=== PATIENT | female | born 2000 ===

== ENCOUNTER 2024-05-06 13:03 | Outpatient (AMB) | payer OTHER, SELFPAY ==
--- NOTE | 2024-05-06 13:05 | A.OFFVIS_ITS ---
Vital Signs 05/06/24 13:08 Height 5 ft 3 in Weight 172 lb 6.424 oz BMI 30.5 BP 98/56 L Blood Pressure Location Lt brachial Position Sitting Pulse 102 H Pulse Source Pulse Oximeter Pulse Oximetry (%) 98 Intake Visit Reasons: Elevated testosterone Intake Note: New patient internally referred by PCP for Elevated Testosterone. Grounds Cleaner Required: No Accompanied by: Spouse Allergies No Known Allergies Allergy (Verified 05/06/24 13:09) Medication List - Last Reconciled 05/06/24 by Jair Sin MD No Known Home Meds HPI Comments Details: The patient is a 23-year-old female presenting with concerns about elevated testosterone levels and associated symptoms. The testosterone elevation was identified in labs from February of the previous year. She has noted irregular menstrual cycles with menstruation occurring every 28-45 days, each cycle lasting 3-5 days. Previously tried various hormonal contraceptives in 2021, which aggravated her migraines and were thus discontinued. Experienced weight fluctuations during Nexplanon use, currently stable around 170 pounds. Reports mild neck hirsutism. PCOS is suspected by her power and recovery superintendent. She is 9 weeks , with a history of early miscarriage. Normal blood pressure, no personal/family history of diabetes or significant hypertension noted. Previous normal thyroid assessments. Menarche was age 11. Menses have been irregulaly, regular . every 4- 6 wks OCP use: in 2021- estrogen/progesterone off BCP since 01/2022.- Estrogen-based control pills: attempted for cycle regulation; discontinued due to migraines and increased risk of blood clots. - Progesterone-based control pills: attempted; discontinued due to exacerbation of migraines. - Nexplanon: previously used; discontinued due to weight gain; led to maintained weight loss post-discontinuation. Metformin use: No Weight gain: on Nexplenon now maintaining wt - Hirsutism/hyperandrogenism: some on neck area - Currently 9 wks Ovarian U/S: Yes - no cysts T2DM or acanthosis: No Lipids: [] BP: No Labs: elevated free t=0.7 Nl prolactin , nl DHEAS PFSH Medical History (Updated 05/06/24 @ 13:13 by Jair Sin MD) Hyperandrogenemia Surgical History (Updated 05/06/24 @ 13:09 by SARAH Vernon) No pertinent past surgical history Family History (Updated 05/06/24 @ 13:09 by SARAH Vernon) Mother No known health problems Father No problems noted. Social History (Updated 05/06/24 @ 12:42 by SARAH Vernon) Alcohol intake: never Patient Tobacco Use Status: Never used Tobacco Physical Exam Vital Signs: BMI result Body Mass Index 30.5 Const Other: There are no cushingoid features. Thyroid gland is normal size weighs about 15 g. 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 Testosterone and DHEA-S levels rule out and adrenal or ovarian tumor. We will rule out congenital adrenal hyperplasia, late onset as well as thyroid disorder 1. Elevated testosterone levels and suspected PCOS: Clinical findings suggest PCOS, given irregular cycles and mild hirsutism. Previous tests ruled out other endocrine disorders. Lifestyle management is advised during . I did order a 17 hydroxy progesterone level to rule out congenital adrenal hyperplasia late onset although the 17 OHP level may be elevated during 2. , first trimester: At 9 weeks with a PCOS diagnosis, the patient is at risk for gestational diabetes and miscarriage. Nutritional consultation and obstetric follow-up are planned. The patient had an opportunity to ask questions regarding treatment plan. The patient expressed understanding and agreement with the above treatment plan. During the visit, I discussed the likelihood of Polycystic Ovarian Syndrome (PCOS) considering the patient's elevated testosterone levels, irregular menstruation, and mild hirsutism. I detailed the associated risks of miscarriage and gestational diabetes during her current . We would defer specific PCOS treatments until after childbirth due to the potential contraindications during . The patient was informed of the importance of maintaining a healthy diet and exercise routine to mitigate risks, and a nutritional referral was initiated. We discussed prioritizing follow-up with her obstetrics provider to monitor for gestational diabetes. Standard labs completed previously were noted. I reviewed the potential future use of medications such as metformin or spironolactone , depending on ongoing symptoms and test results. - Maintain a balanced diet and engage in regular physical activity as allowed. - Follow up with obstetrics for routine care and monitoring for gestational diabetes. - Keep the recommended school traffic guard appointment for dietary guidance during . - . Patient was informed and verbally consented to the use of an ambient scribe for clinic note documentation during this visit. Orders: Orders 17 Hydroxyprogesterone Today E28.1 - Androgen excess Referrals Nutrition/Dietitian Referral E28.1 - Androgen excess Coding Level of Care Code New Pt Level 4 (71826) Diagnoses Hyperandrogenemia E28.1
[2024-05-06 13:08] VITALS: BP 98/56; PULSE 102; O2SAT 98; BMI 30.5
--- OUTSIDE RECORDS SUMMARY | 2024-05-06 15:18 | XMS_ITS | Clinical Summary ---
Author Organization [facility] Address [address] [place] [address] Care Team Providers Care Floor Representative Name Role Phone Geeta Macias PA-C Primary Care Provider [phone] Source Comments PLEASE NOTE, if this patient is a minor, it may be UNLAWFUL to discuss sensitive information that is contained in these records (such as FAMILY PLANNING, MENTAL HEALTH or SUBSTANCE ABUSE) with the minor patient's parent or other person without the patient's specific authorization.[facility] Allergies No known active allergies Encounters Date Type Department Care Team Description 03/07/2024 9:20 AM EST Office Visit [address] [phone] Geeta Maicas PA-C Routine screening for STI (sexually transmitted infection) (Primary Dx); BMI 30.0-30.9,adult from Last 3 Months Family History Medical History Relation Name Comments Brain Cancer Brother 22 yo Alcohol/Drug Abuse Maternal Grandfather Alcohol/Drug Abuse Maternal Uncle Relation Name Status Comments Brother 22 yo Alive Maternal Grandfather Maternal Uncle Social History Tobacco Use Types Packs/Day Years Used Date Smoking Tobacco: Never Smokeless Tobacco: Never Tobacco Cessation:Counseling Given: No Alcohol Use Standard Drinks/Week Comments Yes 0 (1 standard drink = 0.6 oz pur e alcohol) rarely Social Connections Answer Date Recorded Connectedness 1 03/07/2024 Financial Resource Strain Answer Date R ecorded Financial Resource Strain 1 2024 Stress Answer Date Recorded Stress 1 03/07/2024 Physical Activity Answer Date Recorded Physical Activity 0 12/21/2023 Food Insecurity Answer Date Recorded Food 1 03/07/2024 Transportation Needs Answer Date Record ed Transportation 1 03/07/2024 Housing Stability Answer Date Recorded Housing 1 03/07/2024 Safety and Environment Answer Date Zeus rded Safety 1 03/07/2024 Utilities Answer Date Recorded Utilities 1 03/07/2024 Employment Answer Date Recorded Stress 0 12/21/2023 Comments Unknown Sex and Gender Information Value Date Recorded Sex Assigned at Female 03/07/2024 7:16 AM PST Legal Sex Female 1:18 PM PDT Gender Identity Female 03/07/2024 7:16 AM PST Sexual Orientation Straight 03/07/2024 7: 16 AM PST Last Filed Vital Signs Vital Sign Reading Time Taken Comments Blood Pressure 110/80 03/07/2024 10:12 AM EST Pulse 92 03/07/2024 10:12 AM EST Temperature 36.7 ??C (98 ??F) 03/07/2024 10:12 AM EST Respiratory Rate 16 03/07/2024 10:12 AM EST Oxygen Saturation - - Inhaled Oxygen Concentration - - Weight 77.4 kg (170 lb 9.6 oz) 03/07/2024 10:12 AM EST Height 160 cm (5' 3 ) 03/07/2024 10:12 AM EST Body Mass Index 30.22 03/07/2024 10:12 AM EST Plan of Treatment Upcoming Encounters Date Type Department Care Team (Late st Contact Info) Description 06/04/2024 3:00 PM EDT Office Visit [facility] [address] [place] [phone] Geeta Macias PA-C [address] [place] [address] Health Maintenance Due Date Last Done Comments Anxiety Screening 1999 HPV Screening 1999 Hepatitis C Screening 1999 Pap + HPV 1999 Imm-Varicella (1 of 2 - 13+ 2-dose series) 05/24/2012 Imm-HPV (1 - 3-dose series) 05/24/2014 Imm-DTaP/Tdap/Td (1 - Tdap) 05/24/2018 Imm-Hepatitis B (1 of 3 - 19+ 3-dose series) 9 Cervical Cancer Screening 05/24/2020 Pap Smear 05/24/2020 [id number] ( season) 2023 Imm-Influenza (#1) 2023 Hypertension Screening (#1) 03/07/2025 Relationship Safety Screening/Counseling 03/07/2025 03/07/2024 Tobacco Screening 03/07/2025 03/07/2024 Chlamydia Screening 03/13/2025 03/13/2024 Gonorrhea Screening 03/13/2025 03/13/2024 Lipid Screening 03/07/2027 03/07/2024 Alcohol and Drug Screen Completed 03/07/2024 Depression Annual Screen Completed 03/07/2024 HIV Screening Completed 03/07/2024 Cervical Ablation/Cold-Knife Conization Discontinued Cervical Cryotherapy Discontinued Colposcopy Discontinued Endometrial Biopsy Discontinued Excision/Leep Discontinued HPV Genotyping Discontinued Vaginal Pap Discontinued Vulvoscopy Discontinued Procedures Procedure Name Priority Date/Time Associated Diagnosis Comments C TRACHOMATIS/N GONORRHOEAE RNA,TMA Routine 03/13/2024 4:53 PM EST Routine screening for STI (sexually transmitted infection) LIPID PANEL Routine 03/07/2024 10:58 AM EST BMI 30.0-30.9,adult COMPREHENSIVE METABOLIC PANEL Routine 03/07/2024 10:58 AM EST BMI 30.0-30.9,adult BLOOD COUNT COMPLETE AUTO&AUTO DIFRNTL WBC Routine 03/07/2024 10:58 AM EST BMI 30.0-30.9,adult RPR (DIAGNOSIS) WITH REFLEX TO TITER AND CONFIRMATORY TESTING Routine 03/07/2024 10:58 AM EST Routine screening for STI (sexually transmitted infection) HIV 1/2 AG & AB W/RFLX (4TH GEN) Routine 03/07/2024 10:58 AM EST Routine screening for STI (sexually transmitted infection) from Last 3 Months Results * C TRACHOMATIS/N GONORRHOEAE RNA,TMA (03/13/2024 4:53 PM EST) CHLAMYDIA TRACHOMATIS RNA, TMA NOT DETECTED NOT DETECTED [facility] NEISSERIA GONORRHOEAE RNA, TMA NOT DETECTED NOT DETECTED [facility] COMMENT [facility] Urine Urine specimen / Unknown 03/09/2024 1:01 AM EST Narrative [facility] - 03/13/2024 4:53 PM EST The analytical performance characteristics of this assay, when used to test SurePath(TM) specimens have been determined by [employer]. The modifications have not been cleared or approved by the FDA. This assay has been validated pursuant to the CLIA regulations and is used for clinical purposes. For additional information, please refer to https://education.[employer]ful/faq/ANY323 (This link is being provided for information/ educational purposes only.) us Geeta Macias PA-C LAB - NO BLOOD DRAW Edited R esult - Final Performing Organization Address [facility] Co de Phone Number [employer] [address] [address], [employer] [address] [phone] * RPR (DIAGNOSIS) WITH REFLEX TO TITER AND CONFIRMATORY TESTING (03/07/2024 10:58 AM EST) Pathologist [facility] RPR (DX) W/REFL TITER AND CONFIRMATORY TESTING NON-REACT RENETTA NON-REACT RENETTA [facility] Comment: No laboratory evidence of syphilis. If recent exposure is suspected, submit a new sample in 2-4 weeks. Serum Blood / Unknown 03/07/2024 1 0:58 AM EST 03/07/2024 11:00 AM EST Narrative [employer] - 03/09/2024 4:06 PM EST FASTING:YES PATIENT UNABLE TO VOID; ADVISED TO RETURN FOR COLLECTION. [facility] Geeta Macias PA-C LAB - BLOOD DRAW Final Resul t Performing Organization Address [facility] Co de Phone Number [employer] [address] [address], [employer] [address] [phone] * HIV 1/2 AG & AB W/RFLX (4TH GEN) (03/07/2024 10:58 AM EST) HIV AG/AB, 4TH GEN NON-REAC TIVE NON-REAC TIVE [facility] Comment: HIV-1 antigen and HIV-1/HIV-2 antibodies were not detected. There is no laboratory evidence of HIV infection. PLEASE NOTE: This information has been disclosed to you from records whose confidentiality may be protected by state law. ??If your state requires such protection, then the state law prohibits you from making any further disclosure of the information without the specific written consent of the person to whom it pertains, or as otherwise permitted by law. A general authorization for the release of medical or other information is NOT sufficient for this purpose. ?? For additional information please refer to http://education.Measureful/faq/NHW204 (This link is being provided for informational/ educational purposes only.) The performance of this assay has not been clinically validated in patients less than 2 years old. Blood Blood / Unknown 03/07/2024 1 0:58 AM EST 03/07/2024 11:00 AM EST Narrative [employer] [employer] - 03/09/2024 4:06 PM EST FASTING:YES PATIENT UNABLE TO VOID; ADVISED TO RETURN FOR COLLECTION. us Geeta Macias PA-C LAB - BLOOD DRAW Final Resul t [employer] [address] [place] [id number], [employer] [address] [phone] * (ABNORMAL) BLOOD COUNT COMPLETE AUTO&AUTO DIFRNTL WBC (03/07/2024 10:58 AM EST) Pathologist [facility] WHITE BLOOD CELL COUNT 6.4 3.8 - 10.8 Thousand/ uL [facility] RED BLOOD CELL COUNT 5.29(H) 3.80 - 5.10 Million/u L [facility] HEMOGLOBIN 14.6 11.7 - 15.5 g/dL [facility] HEMATOCRIT 44.9 35.0 - 45.0 % [facility] MCV 84.9 80.0 - 100.0 fL [facility] MCH 27.6 27.0 - 33.0 pg [facility] MCHC 32.5 32.0 - 36.0 g/dL [facility] Comment: For adults, a slight decrease in the calculated MCHC value (in the range of 30 to 32 g/dL) is most likely not clinically significant; however, it should be interpreted with caution in correlation with other red cell parameters and the patient's clinical condition. RDW 12.8 11.0 - 15.0 % [facility] PLATELET COUNT 238 140 - 400 Thousand/ uL [facility] MPV 11.6 7.5 - 12.5 fL [facility] ABSOLUTE NEUTROPHILS 3,341 1,500 - 7,800 cells/uL [facility] ABSOLUTE LYMPHOCYTES 2,458 850 - 3,900 cells/uL [facility] ABSOLUTE MONOCYTES 448 200 - 950 cells/uL [facility] ABSOLUTE EOSINOPHILS 122 15 - 500 cells/uL [facility] ABSOLUTE BASOPHILS 32 0 - 200 cells/uL [facility] NEUTROPHILS PCT 52.2 % [facility] LYMPHOCYTES 38.4 % [facility] MONOCYTES 7.0 % [facility] EOSINOPHILS 1.9 % [facility] BASOPHILS 0.5 % [employer] DIAG [facility] Blood Blood / Unknown 03/07/2024 1 0:58 AM EST 03/07/2024 11:00 AM EST Narrative [facility] [employer] - 03/09/2024 4:06 PM EST FASTING:YES PATIENT UNABLE TO VOID; ADVISED TO RETURN FOR COLLECTION. Geeta Macias PA-C LAB - BLOOD DRAW Edited Resu lt - Final [employer] [address] [place] [id number], [facility] [address] [place] [phone] * (ABNORMAL) LIPID PANEL (03/07/2024 10:58 AM EST) CHOLESTEROL, TOTAL 192 <200 mg/dL [facility] HDL CHOLESTEROL 37(L) > OR = 50 mg/dL [facility] TRIGLYCERIDES 236(H) <150 mg/dL [facility] Comment: If a non-fasting specimen was collected, consider repeat triglyceride testing on a fasting specimen if clinically indicated. Emily et al. J. of Clin. Lipidol. 2015;9:129-169. LDL-CHOLESTEROL 119(H) 99 mg/dL (calc) [facility] Comment: Reference range: <100 Desirable range <100 mg/dL for primary prevention; ?? <70 mg/dL for patients with CHD or diabetic patients with > or = 2 CHD risk factors. LDL-C is now calculated using the Chuck calculation, which is a validated novel method providing better accuracy than the Friedewald equation in the estimation of LDL-C. Nino SS et al. JAMI. 2013;310(19): 0101-4540 (http://education.[employer]/faq/JFZ451) CHOL/HDLC RATIO 5.2(H) <5.0 (calc) [facility] NON-HDL CHOLESTEROL 155(H) <130 mg/dL (calc) [facility] Comment: For patients with diabetes plus 1 major ASCVD risk factor, treating to a non-HDL-C goal of <100 mg/dL (LDL-C of <70 mg/dL) is considered a therapeutic option. Blood Blood / Unknown 03/07/2024 1 0:58 AM EST 03/07/2024 11:00 AM EST Narrative [facility] [employer] - 03/09/2024 4:06 PM EST FASTING:YES PATIENT UNABLE TO VOID; ADVISED TO RETURN FOR COLLECTION. us Geeta Macias PA-C LAB - BLOOD DRAW Final Resul t [employer] [address] [place] [id number], [facility] [address] [place] [phone] * COMPREHENSIVE METABOLIC PANEL (03/07/2024 10:58 AM EST) [facility] GLUCOSE 91 65 - 99 mg/dL [facility] Comment: ?Fasting reference interval UREA NITROGEN (BUN) 10 7 - 25 mg/dL [facility] CREATININE (blood) 0.64 0.50 - 0.96 mg/dL [employer] [place] [facility] EGFR 126 > OR = 60 mL/min/1. 73m2 [employer] [place] [facility] BUN/CREATININE RATIO SEE NOTE: [facility] Comment: ?? Not Reported: BUN and Creatinine are within ?? reference range. ? SODIUM 139 135 - 146 mmol/L [employer] POTASSIUM 4.2 3.5 - 5.3 mmol/L [employer] [place] [facility] CHLORIDE 103 98 - 110 mmol/L [employer] [place] [facility] CARBON DIOXIDE 31 20 - 32 mmol/L [employer] [place] [facility] CALCIUM 9.1 8.6 - 10.2 mg/dL [facility] [place] [facility] PROTEIN, TOTAL 6.8 6.1 - 8.1 g/dL [facility] [place] [facility] ALBUMIN 4.4 3.6 - 5.1 g/dL [facility] [place] [facility] GLOBULIN 2.4 1.9 - 3.7 g/dL (calc) [facility] ALBUMIN/GLOBULI N RATIO 1.8 1.0 - 2.5 (calc) [facility] [place] [facility] BILIRUBIN, TOTAL 0.4 0.2 - 1.2 mg/dL [facility] ALKALINE PHOSPHATASE 61 31 - 125 U/L [employer] AST 14 10 - 30 U/L [facility] ALT 15 6 - 29 U/L [facility] Blood Blood / Unknown 03/07/2024 1 0:58 AM EST 03/07/2024 11:00 AM EST Narrative [employer] [facility] - 03/09/2024 4:06 PM EST FASTING:YES PATIENT UNABLE TO VOID; ADVISED TO RETURN FOR COLLECTION. Geeta Macias PA-C LAB - BLOOD DRAW Edited Resu lt - Final [employer] [address] [address], [employer] [facility] [address] [place] [phone] from Last 3 Months Insurance [employer] Member Subscriber Plan / Payer (Ef fective 2023-Present) Name:Alec Hunt Relation to Subscriber:Self Name:Alec Hunt Payer ID:[id number] Group ID:Not on file Type:Indemnity Address: [facility] [address] [place] [address] Care Teams Floor Representative Relationship Specialty Start Date End Date Geeta Macias PA-C [address] [place] [address] PCP - General FAMILY MEDICINE PA 12/21/23
--- OUTSIDE RECORDS SUMMARY | 2024-05-06 15:18 | XMS_ITS | Clinical Summary ---
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 09/19/2022 Active vitamin iron fum-folic acid 27-0.8 mg per tablet Take 1 tablet by mouth 1 (one) time each day. 30 each 04/29/2024 04/30/19 26 Active Encounters Date Type Department Care Team Description 04/29/2024 3:00 PM EDT Clinical Support [facility] [address] [place], [place] [phone] Missed period (Primary Dx) 04/03/2024 Telephone Ob[facility]etrics [facility]cology - [facility] [address] [place], [place] [phone] Giovanna Goodson CNM 03/28/2024 11:00 AM EST Office Visit Obst[facility]s [facility]cology - [facility] [address] [place], [place] [phone] Giovanna Goodson CNM Irregular menstrual cycle (Primary Dx) from Last 3 Months Surgical History Surgery Date Site/Laterality Comments WISDOM TOOTH EXTRACTION PROCEDURE: HISTORICAL WISDOM TEETH EXTRACTION Medical History Medical History Date Comments Migraines DX:Migraines Bicornate uterus DX:Bicornate ut erus Family History Medical History Relation Name Comments Bipolar disorder Mother Relation Name Status Comments Father Maternal Grandfather Maternal Grandmother Alive Mother Alive Paternal Grandfather Paternal Grandmother Alive Social History Tobacco Use Types Packs/Day Years Used Date Smoking Tobacco: Never Smokeless Tobacco: Never Tobacco Cessation:Counseling Given: Not Answered Alcohol Use Standard Drinks/Week Comments No 0 (1 standard drink = 0.6 oz pur e alcohol) Housing Instability Answer Date Recorde d Are you worried that in the next 2 months you may not have stable housing? Unable to respond 03/27/2024 Food Access & Nutrition Answer Date Rec orded Do you have access to a vari ety of food including fruits and vegetables? Unable to respond 03/27/2024 Health Literacy Answer Date Recorded How often do you need to hav e someone help you when you read instructions, pamphlets, or other written material from your doctor or pharmacy? Unable to respond 03/27/2024 Caregiver: How often do you need to have someone help you when you read instructions, pamphlets, or other written material from your doctor or pharmacy? Not on file 025 Financial Risk Answer Date Recorded How hard is it for you to pa y for the very basics like food, housing, medical care, and air conditioning / heating? Unable to respond 03/27/2024 Transportation Answer Date Recorded Has the lack of transportati on kept you from meetings, work, or from getting things needed for daily living? Unable to respond 03/27/2024 Has the lack of transportati on kept you from medical appointments or from getting medications? Unable to respond 03/27/2024 Social Isolation Answer Date Recorded How often do you feel lonely or isolated from those around you? Unable to respond 03/27/2024 Food Risk Answer Date Recorded Within the past 12 months we worried whether our food would run out before we got money to buy more. Unable to respond 025 Within the past 12 months th e food we bought just didn't last and we didn't have money to get more. Unable to respond 03/09 Dependent Care Answer Date Recorded Do you need help finding or paying for care for your loved ones. For example, rn child or elderly care for an older adult? Unable to respond 03/27/2024 Education Answer Date Recorded Do you think completing more education or training, like finishing a GED, going to college, or learning a trade, would be helpful for you? Unable to respond 03/27/2024 Employment and Income Answer Date Recor ded During the last four weeks, have you been actively looking for work? Unable to respond 03/27/2024 Living Situation Answer Date Recorded What is your living situation? 0 03/27/2024 Estimated Date of Delivery Comme nts Yes 12/08/2024 Sex and Gender Information Value Date Recorded Sex Assigned at Not on file Legal Sex Female 1:21 PM EDT Gender Identity Not on file Sexual Orientation Not on file Obstetrics History Para Term AB IAB SAB Ectopic Multiple Livin g Live Births 2 0 0 0 1 0 1 0 0 0 0 Date Outcome GA Total Labor Labor/2nd/3rd Weight Sex Type Anes PTL Yojana A1 A5 Name Clin SAB Current Last Filed Vital Signs Vital Sign Reading Time Taken Comments Blood Pressure 126/72 04/29/2024 3:13 PM EDT Pulse 90 04/29/2024 3:13 PM EDT Temperature - - Respiratory Rate 19 04/29/2024 3:13 PM EDT Oxygen Saturation - - Inhaled Oxygen Concentration - - Weight 76.2 kg (168 lb) 04/29/2024 3:13 PM EDT Height 160 cm (5' 3 ) 04/29/2024 3:13 PM EDT Body Mass Index 29.76 04/29/2024 3:13 PM EDT Plan of Treatment Upcoming Encounters Date Type Department Care Team (Late st Contact Info) Description 05/13/2024 1:30 PM EDT Clinical [facility] [address] [place] [address] 06/03/2024 3:00 PM EDT Initial Obstetrics and Gynecology - [address] [phone] Giselle Carrero CNM [address] [place] [phone] Health Maintenance Due Date Last Done Comments DTaP,Tdap,and Td Vaccines (6 - Td or Tdap) 01/03/2021 01/03/2011, 05/26/2003, 09/13/2000, Additional history exists COVID-19 Vaccine ( season) 2023 Gonorrhea/Chlamydia Screening 05/27/2024 05/28/2023 Influenza Vaccine (Season Ended) 2024 11/20/2018, 10/23/2016, 10/26/2014, Additional history exists Social Influencers of Health Screening 03/27/2025 03/27/2024 Depression Screening 04/28/2025 04/28/2024 Cervical Cancer Screening: Pap Smear 09/19/2025 09/19/2022, 09/19/2022 Cholesterol Screening (Lipid Panel) 03/07/2029 03/07/2024, 03/07/2024 Hepatitis B Vaccines Completed 09/13/2000, 1999, 1999 IPV Vaccines Completed 05/26/2003, 10/07, 09/13/2000, Additional history exists HPV Vaccines Completed 10/26/2014, 11/06, 10/14/2012 Meningococcal ACWY Vaccine Completed 09/27/2017, HIV Screening Completed 04/04/2019 Hepatitis C Screening Completed 04/04/2019 HIB Vaccines Aged Out No longer eligi ble based on patient's age to complete this topic Hepatitis A Vaccines Aged Out No long er eligible based on patient's age to complete this topic Meningococcal B Vacine Aged Out No lo nger eligible based on patient's age to complete this topic Pneumococcal Vaccine: Pediatrics (0 to 5 Years) and At-Risk Patients (6 to 64 Years) Aged Out No longer eligible based on patient's age to complete this topic RSV Immunization Patients Under 20 months Aged Out No longer eligible based on patient's age to complete this topic Procedures Procedure Name Priority Date/Time Associated Diagnosis Comments POC , URINE DIAGNOSTIC Routine 04/29/2024 3:46 PM EDT Missed period PROLACTIN Routine 03/28/2024 12:28 PM EST Irregular menstrual cycle TESTOSTERONE FREE, BIOAVAILABLE AND TOTAL Routine 03/28/2024 12:28 PM EST Irregular menstrual cycle LUTEINIZING HORMONE Routine 03/28/2024 12:28 PM EST Irregular menstrual cycle ESTRADIOL Routine 03/28/2024 12:28 PM EST Irregular menstrual cycle DEHYDROEPIANDROSTERONE Routine 12:28 PM EST Irregular menstrual cycle HEMOGLOBIN A1C Routine 03/28/2024 12:28 PM EST Irregular menstrual cycle THYROID STIMULATING HORMONE WITH REFLEX TO FREE T4 AND FREE T3 Routine 03/28/2024 12:28 PM EST Irregular bleeding HM GONORRHEA/CHLAMYDIA SCRREENING Routine 05/28/2023 HM HPV Routine 09/19/2022 HM HEPATITIS C SCREENING Routine 04/04/2019 HM HIV SCREENING Routine 04/04/2019 from Last 3 Months or Most Recently Relevant to Health Maintenance Results * (ABNORMAL) POC , urine manually resulted (04/29/2024 3:46 PM EDT) HCG, Ur POC Positive(A ) Negative POC hCG Int QC Pass? Yes Yes Urine Urine specimen obtained by clean catch procedure / Unknown 04/29/2024 3:46 PM EDT Giselle Carrero CNM POINT OF CARE TEST ENTER/GEMMA T ORDERABLES Final Result * Thyroid stimulating hormone with reflex to free t4 and free t3 (03/28/2024 12:28 PM EST) TSH 2.11 0.40 - 4.00 mcIU/mL LAB CHEMISTRY METHOD 03/28/2024 4:38 PM EST [facility] Blood Venous blood specimen / Unknown Venipuncture / Unknown 03/28/2024 12:28 PM EST 03/28/2024 12:28 PM EST Giovanna ORTIZ LAB BLOOD ORDERABLES Fi nal Result [facility] [address] [place] [address], [place] [phone] * (ABNORMAL) Testosterone free, bioavailable and total (03/28/2024 12:28 PM EST) Testosterone 45 9 - 48 ng/dL LAB CHEMISTRY METHOD 03/28/2024 4:38 PM EST [facility] Testosterone, Free 0.7(H) 0.0 - 0.5 ng/dL LAB CHEMISTRY METHOD 03/28/2024 4:38 PM EST [facility] Testosterone, Bioavailable 16(H) 1 - 9 ng/dL LAB CHEMISTRY METHOD 03/28/2024 4:38 PM EST [facility] Sex Hormone Binding 39.9 See Comment nmol/L LAB CHEMISTRY METHOD 03/28/2024 4:38 PM EST [facility] Comment: FEMALES: ??pre-menopausal ?? 10.8 - >180 ??post-menopausal ??23.2 - 159.1 MALES: ?? 21-49 years ? 14.6 - 94.6 ?? 50-89 years ? 21.6 - 113.1 CHILDREN: ??No established reference range Over the counter supplements containing high doses of biotin may interfere with this assay. ??If interference is suspected, patients should be retested after refraining from biotin supplements for 72 hours. Albumin 4.1 3.2 - 5.0 g/dL LAB CHEMISTRY METHOD 03/28/2024 4:38 PM EST [facility] Blood Venous blood specimen / Unknown Venipuncture / Unknown 03/28/2024 12:28 PM EST 03/28/2024 12:28 PM EST Giovanna ORTIZ LAB BLOOD ORDERABLES Fi nal Result [facility] [address] [place] [address], * Prolactin (03/28/2024 12:28 PM EST) [facility] Prolactin 23.20 See Comment ng/mL LAB CHEMISTRY METHOD 03/28/2024 4:32 PM EST [facility] Comment: Prolactin Reference Ranges (ng/mL) ??Non ?2.2 - ??30.3 ? 8.1 - 347.6 ??Postmenopausal 0.7 - ??31.5 Blood Venous blood specimen / Unknown Venipuncture / Unknown 03/28/2024 12:28 PM EST 03/28/2024 12:28 PM EST Giovanna Goodson [facility] LAB BLOOD ORDERABLES Fi nal Result Performing Organization Address [facility] de Phone Number [facility] [address] [place] [address], * Estradiol (03/28/2024 12:28 PM EST) [facility] Estradiol 491 See below pcg/mL LAB CHEMISTRY METHOD 03/28/2024 4:32 PM EST [facility] Comment: ESTRADIOL REFERENCE RANGES (PG/ML) FEMALES NORMALLY MENSTRUATING: FOLLICULAR PHASE 21.4 - 164.8 MIDCYCLE PEAK ?49.9 - 367.2 LUTEAL PHASE ? 40.2 - 259.0 POSTMENOPAUSAL: ON HRT ?<11 - 462.1 UNTREATED ? <11 - ??58.3 Fulvestrant has been shown to cross-react with the estradiol assay and cause falsely elevated results. For patients being treated with fulvestrant, Estradiol ultrasensitive should be ordered. ??This test is performed by LC/MS and is not expected to show cross reactivity to fulvestrant. Blood Venous blood specimen / Unknown Venipuncture / Unknown 03/28/2024 12:28 PM EST 03/28/2024 12:28 PM EST Giovanna ORTIZ LAB BLOOD ORDERABLES Fi nal Result Performing Organization Address [facility] Co de Phone Number [facility] [address] [place] [address], * Dehydroepiandrosterone (03/28/2024 12:28 PM EST) Pathologist [facility] DHEA (Dehydroepiandroster one), Unconjugated, LC/MS/MS 491 ng/dL 04/03/2024 10:35 AM EST [facility] Comment: Adult Female Reference Ranges ??Pre-Menopausal ?Mid Follicular: 385-1143 ng/dL ?Surge: ?345-2030 ng/dL ?Mid Luteal: ? 414-1295 ng/dL ??Post-Menopausal ?77-851 ng/dL This test was developed and its analytical performance characteristics have been determined by [email or web address]. It has not been cleared or approved by FDA. This assay has been validated pursuant to the CLIA regulations and is used for clinical purposes. Test Performed at: [facility] [address] ??[id number] ? I Nghia TOBAR, PhD, PAUL Blood Venous blood specimen / Unknown Venipuncture / Unknown 03/28/2024 12:28 PM EST 03/28/2024 12:28 PM EST Giovanna ORTIZ LAB BLOOD ORDERABLES Fi nal Result [facility] [address] [place] [address] * Hemoglobin A1c (03/28/2024 12:28 PM EST) [facility] Hemoglobin A1C 5.3 <6.5 % LAB CHEMISTRY METHOD 03/28/2024 9:02 PM EST [facility] Mean Bld Glu Estim. 105 mg/dL LAB CHEMISTRY METHOD 03/28/2024 9:02 PM EST [facility] Blood Venous blood specimen / Unknown Venipuncture / Unknown 03/28/2024 12:28 PM EST 03/28/2024 12:28 PM EST Giovanna Goodson [facility] BLOOD ORDERABLES Fi nal Result Performing Organization Address [facility]/ZIP Co de Phone Number [facility] [address] [place] [address], [place] [phone] * Luteinizing hormone (03/28/2024 12:28 PM EST) Luteinizing Hormone 2.0 See Comment mIU/mL LAB CHEMISTRY METHOD 03/28/2024 4:31 PM EST [facility] Blood Venous blood specimen / Unknown Venipuncture / Unknown 03/28/2024 12:28 PM EST 03/28/2024 12:28 PM EST Narrative [facility] - 03/28/2024 4:31 PM EST LH REFERENCE RANGES (MIU/ML) FEMALES NORMALLY MENSTRUATING: FOLLICULAR PHASE ??1.9 - 12.8 MIDCYCLE PEAK ?22.8 - 76.1 LUTEAL PHASE ?0.6 - 13.5 POSTMENOPAUSAL: ON HRT ?1.1 - ??52.4 UNTREATED ? 8.6 - ??61.8 Giovanna ORTIZ LAB BLOOD ORDERABLES Fi nal Result Performing Organization Address [facility]/ZIP Co de Phone Number [facility] [address] [place] [address], [place] [phone] * Hm Gonorrhea/Chlamydia Screening (05/28/2023) HM Gonorrhea/Chla mydia Screening abstracted Historical Provider HEALTH MAINTENANCE Final Result * Cervical Cancer Screening: HPV (09/19/2022) Cervical Cancer Screening: HPV no interpreta tion,abstr acted Historical Provider HEALTH MAINTENANCE Final Result * HIV Screening (04/04/2019) HIV Screening abstracted Historical Provider HEALTH MAINTENANCE Final Result * Hepatitis C Screening (04/04/2019) Hepatitis C Screening abstracted Historical Provider HEALTH MAINTENANCE Final Result from Last 3 Months or Most Recently Relevant to Health Maintenance Insurance [employer] 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
== END 2024-05-06 13:40 | disposition home or self-care (01) ==
LOC: HO.ENCR 13:04
PROVIDERS: PCP Internal Medicine; Visit Provider Internal Medicine Endocrinology, Diabetes & Metabolism
DX: E28.1 Androgen excess (principal)
CPT/HCPCS: 99204

== ENCOUNTER → 2024-05-06 13:03 | Outpatient (BNVA) | payer OTHER, SELFPAY | PROVIDERS: PCP Internal Medicine; Visit Provider Internal Medicine Endocrinology, Diabetes & Metabolism | DX: E28.1 Androgen excess (principal) | CPT/HCPCS: 99202 ==

== ENCOUNTER 2024-05-22 13:32 | Outpatient (AMB) | payer OTHER, SELFPAY ==
--- NOTE | 2024-05-22 13:37 | A.OFFVIS_ITS ---
VS Expanded 05/22/24 13:39 05/22/24 14:12 Height 5 ft 3 in 5 ft 3 in Weight 165 lb BMI 29.2 Intake Visit Reasons: Hyperandrogenemia Allergies No Known Allergies Allergy (Verified 05/06/24 13:09) Nutrition Presentation Details: Pt presents for MNT for hyperandrogenemia. Pt was referred by metal buffer Pt is 11 wks , due date Dec 2024 On vitamins Denies vomiting/nausea typical meal 9-10: scrambled eggs, pancakes or toast , water or oj fruits [facility] BS Monitoring Most Recent Diabetes Results: No Data to Display [employer] Equation Height: 5 ft 3 in Weight: 165 lb Resting Metabolic Rate: 1463.80 Calculated Activity Level: Sedentary Calories Needed to Maintain Weight: 1756.56 Diagnosis Nutrition problem #1: food nutri know defi As related to (etiology) #1: diagnosis As evidenced by (sign/symptom) #1: knowledge deficit of diet [facility] Medical History (Updated 05/06/24 @ 13:13 by Jair Sin MD) Hyperandrogenemia Surgical History (Updated 05/06/24 @ 13:09 by SARAH Vernon) No pertinent past surgical history Family History Mother No known health problems Father No problems noted. 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 Category: Medical Plan pre gravid wt 167 lbs current wt 165 lbs Expected due date Dec 21, 2024, Weeks gestation : 11 wks Recommended wt gain during : 15-25 lbs Wt: 83 Kg (pregravid wt ) Est kcal needs as per MSJ: 1800 (40% carb, 30% protein/fat) Est fluid needs as per 25-30 ml/d: 2500 Est prot per day as per 1-1.2 g/kg bw: 80g/d Recommend fiber intake : 8-10 g per day and gradually increase to 25-28 g per day for women and 35-38 g for men or as tolerated Recommend sodium intake per day : less than 2000 mg Educated patient on: ( R = reviewed V = verbalizes understanding N/R = needs review N/A = not applicable * Food sources of carbohydrate, adequate serving sizes and its role in various health conditions: R * Differences between complex carbohydrates a simple carbohydrates, role of fiber in diet: R * Lean protein sources of foods: R * Differences between types of fats and role in diet (mono on saturated fat fatty acids, saturated fatty acids, trans fats): R V N/R * Food sources of sodium in salt and healthy modifications for heart health in kidney health: R V R/V * Vitamins and minerals: R V N/R * Healthy plate method concept: R V N/R * Physical activity: Benefits a precaution: R V N/R * REviewed nutrittion during /food safety * Patient Instructions: Choose whole grain foods/complex carbohydrates Work on having 3 meals/d consisting of 60 g carb (fiber rich)/2-3 oz of lean protein food and snack 20g carb/1 oz lean protein food Keep hydrated by having water with meals/snacks see [id number] zeus meal s Coding Level of Care Code Nutr Indiv Intake (19545) Diagnoses Hyperandrogenemia E28.1 Time Spent (min) 30
--- OUTSIDE RECORDS SUMMARY | 2024-05-22 16:34 | XMS_ITS | Clinical Summary ---
Author Organization [facility] Address [address] [place] [address] Care Team Providers Care Patient Service Rep Name Role Phone Geeta Macias PA-C Primary Care Provider [phone] Source Comments PLEASE NOTE, if this patient [...] Description 03/07/2024 9:20 AM EST Office Visit [address] [phone] Geeta Macias PA-C Routine screening for STI (sexually transmitted [...] Description 06/04/2024 3:00 PM EDT Office Visit [facility] [address] [place] [phone] Geeta Macias PA-C [address] [place] [address] Health Maintenance Due Date Last Done Comments Anxiety Screening 1999 HPV Screening 1999 Hepatitis C Screening 1999 Pap + HPV 1999 Imm-Varicella (1 of 2 - 13+ 2-dose series) 05/24/2012 Imm-HPV (1 - 3-dose series) 05/24/2014 Imm-DTaP/Tdap/Td (1 - Tdap) 05/24/2018 Imm-Hepatitis B (1 of 3 - 19+ 3-dose series) 9 Cervical Cancer Screening 05/24/2020 Pap Smear 05/24/2020 [id number] ( season) 2023 Imm-Influenza (#1) 2023 Hypertension [...] TRACHOMATIS RNA, TMA NOT DETECTED NOT DETECTED [facility] NEISSERIA GONORRHOEAE RNA, TMA NOT DETECTED NOT DETECTED [facility] COMMENT [facility] Urine Urine specimen / Unknown 03/09/2024 1:01 AM EST Narrative [facility] - 03/13/2024 4:53 PM EST The analytical performance characteristics of this assay, when used to test SurePath(TM) specimens have been determined by [employer]. The modifications have not been cleared or approved by the FDA. This assay has been validated pursuant to the CLIA regulations and is used for clinical purposes. For additional information, please refer to https://education.MOWGLI/faq/QMX856 (This link is being provided for information/ educational purposes only.) us Geeta Macias PA-C LAB - NO BLOOD DRAW Edited R esult - Final Performing Organization Address City/[facility] Co de Phone Number [facility] [address] [address], [facility] [address] [address] * RPR (DIAGNOSIS) WITH REFLEX TO TITER AND CONFIRMATORY TESTING (03/07/2024 10:58 AM EST) Pathologist [facility] RPR (DX) W/REFL TITER AND CONFIRMATORY TESTING NON-REACT RENETTA NON-REACT RENETTA [facility] Comment: No laboratory evidence of syphilis. If recent exposure is suspected, submit a new sample in 2-4 weeks. Serum Blood / Unknown 03/07/2024 1 0:58 AM EST 03/07/2024 11:00 AM EST Narrative [facility] - 03/09/2024 4:06 PM EST FASTING:YES PATIENT UNABLE TO VOID; ADVISED TO RETURN FOR COLLECTION. [employer] Geeta Macias PA-C LAB - BLOOD DRAW Final Resul t Performing Organization Address [facility] Co de Phone Number [facility] [address] [address], [facility] [address] [address] * HIV 1/2 AG & AB W/RFLX (4TH GEN) (03/07/2024 10:58 AM EST) HIV AG/AB, 4TH GEN NON-REAC TIVE NON-REAC TIVE [facility] Comment: HIV-1 antigen and HIV-1/HIV-2 antibodies were [...] ?? For additional information please refer to http://education.MOWGLI/faq/LBG467 (This link is being provided for informational/ educational purposes only.) The performance of this assay has not been clinically validated in patients less than 2 years old. Blood Blood / Unknown 03/07/2024 1 0:58 AM EST 03/07/2024 11:00 AM EST Narrative [email or web address] - 03/09/2024 4:06 PM EST FASTING:YES PATIENT UNABLE TO VOID; ADVISED TO RETURN FOR COLLECTION. us Geeta Macias PA-C LAB - BLOOD DRAW Final Resul t [email or web address] [address] [place] [id number], [facility] [address] [phone] * (ABNORMAL) BLOOD COUNT COMPLETE AUTO&AUTO DIFRNTL WBC (03/07/2024 10:58 AM EST) Pathologist [facility] WHITE BLOOD CELL COUNT 6.4 3.8 - 10.8 Thousand/ uL [facility] RED BLOOD CELL COUNT 5.29(H) 3.80 - 5.10 Million/u L [facility] HEMOGLOBIN 14.6 11.7 - 15.5 g/dL [facility] HEMATOCRIT 44.9 35.0 - 45.0 % [facility] MCV 84.9 80.0 - 100.0 fL [facility] MCH 27.6 27.0 - 33.0 pg [facility] MCHC 32.5 32.0 - 36.0 g/dL [facility] Comment: For adults, a slight decrease in the calculated MCHC value (in the range of 30 to 32 g/dL) is most likely not clinically significant; however, it should be interpreted with caution in correlation with other red cell parameters and the patient's clinical condition. RDW 12.8 11.0 - 15.0 % [facility] PLATELET COUNT 238 140 - 400 Thousand/ uL [facility] MPV 11.6 7.5 - 12.5 fL [facility] ABSOLUTE NEUTROPHILS 3,341 1,500 - 7,800 cells/uL [facility] ABSOLUTE LYMPHOCYTES 2,458 850 - 3,900 cells/uL [facility] ABSOLUTE MONOCYTES 448 200 - 950 cells/uL [facility] ABSOLUTE EOSINOPHILS 122 15 - 500 cells/uL [facility] ABSOLUTE BASOPHILS 32 0 - 200 cells/uL [facility] NEUTROPHILS PCT 52.2 % [facility] LYMPHOCYTES 38.4 % [facility] MONOCYTES 7.0 % [facility] EOSINOPHILS 1.9 % [facility] BASOPHILS 0.5 % [employer] DI[facility] Blood Blood / Unknown 03/07/2024 1 0:58 AM EST 03/07/2024 11:00 AM EST Narrative [email or web address] - 03/09/2024 4:06 PM EST FASTING:YES PATIENT UNABLE TO VOID; ADVISED TO RETURN FOR COLLECTION. Geeta Macias PA-C LAB - BLOOD DRAW Edited Resu lt - Final [email or web address] [address] [place] [phone], [facility] [address] [place] [phone] * (ABNORMAL) LIPID PANEL (03/07/2024 10:58 AM EST) CHOLESTEROL, TOTAL 192 <200 mg/dL [facility] HDL CHOLESTEROL 37(L) > OR = 50 mg/dL [facility] TRIGLYCERIDES 236(H) <150 mg/dL [facility] Comment: If a non-fasting specimen was collected, consider repeat triglyceride testing on a fasting specimen if clinically indicated. Emily et al. J. of Clin. Lipidol. 2015;9:129-169. LDL-CHOLESTEROL 119(H) 99 mg/dL (calc) [facility] Comment: Reference range: <100 Desirable range <100 mg/dL for primary prevention; ?? <70 mg/dL for patients with CHD or diabetic patients with > or = 2 CHD risk factors. LDL-C is now calculated using the Chuck calculation, which is a validated novel method providing better accuracy than the Friedewald equation in the estimation of LDL-C. Nion SS et al. JAMI. 2013;310(19): 7113-0320 (http://education.Ultralife/faq/FQO655) CHOL/HDLC RATIO 5.2(H) <5.0 (calc) [facility] NON-HDL CHOLESTEROL 155(H) <130 mg/dL (calc) [facility] Comment: For patients with diabetes plus 1 major ASCVD risk factor, treating to a non-HDL-C goal of <100 mg/dL (LDL-C of <70 mg/dL) is considered a therapeutic option. Blood Blood / Unknown 03/07/2024 1 0:58 AM EST 03/07/2024 11:00 AM EST Narrative [email or web address] - 03/09/2024 4:06 PM EST FASTING:YES PATIENT UNABLE TO VOID; ADVISED TO RETURN FOR COLLECTION. us Geeta Macias PA-C LAB - BLOOD DRAW Final Resul t [email or web address] [address] [place] [phone], [facility] [address] [place] [phone] * COMPREHENSIVE METABOLIC PANEL (03/07/2024 10:58 AM EST) [facility] GLUCOSE 91 65 - 99 mg/dL [facility] Comment: ?Fasting reference interval UREA NITROGEN (BUN) 10 7 - 25 mg/dL [facility] CREATININE (blood) 0.64 0.50 - 0.96 mg/dL [facility] [place] [facility] EGFR 126 > OR = 60 mL/min/1. 73m2 [facility] [employer] [facility] [place] [facility] BUN/CREATININE RATIO SEE NOTE: [facility] Comment: ?? Not Reported: BUN and Creatinine are within ?? reference range. ? SODIUM 139 135 - 146 mmol/L [facility] POTASSIUM 4.2 3.5 - 5.3 mmol/L [facility] [place] [facility] CHLORIDE 103 98 - 110 mmol/L [facility] [place] [facility] CARBON DIOXIDE 31 20 - 32 mmol/L [facility] [place] [facility] CALCIUM 9.1 8.6 - 10.2 mg/dL [facility] [place] [facility] PROTEIN, TOTAL 6.8 6.1 - 8.1 g/dL [facility] [place] [facility] ALBUMIN 4.4 3.6 - 5.1 g/dL [facility] [place] [facility] GLOBULIN 2.4 1.9 - 3.7 g/dL (calc) [facility] ALBUMIN/GLOBULI N RATIO 1.8 1.0 - 2.5 (calc) [facility] [place] [facility] BILIRUBIN, TOTAL 0.4 0.2 - 1.2 mg/dL [facility] ALKALINE PHOSPHATASE 61 31 - 125 U/L [facility] AST 14 10 - 30 U/L [facility] ALT 15 6 - 29 U/L [facility] Blood Blood / Unknown 03/07/2024 1 0:58 AM EST 03/07/2024 11:00 AM EST Narrative [facility] - 03/09/2024 4:06 PM EST FASTING:YES PATIENT UNABLE TO VOID; ADVISED TO RETURN FOR COLLECTION. Geeta Macias PA-C LAB - BLOOD DRAW Edited Resu lt - Final [facility] [address] [address], [facility] [address] [place] [phone] from Last 3 Months Insurance [employer] COM Member Subscriber Plan / Payer (Ef fective 2023-Present) Name:Alec Hunt Relation to Subscriber:Self Name:Alec Hunt Payer ID:[id number] Group ID:Not on file Type:Indemnity Address: [facility] [address] [place] [address] Care Teams Patient Service Rep Relationship Specialty Start Date End Date Geeta Macias PA-C [address] [place] [address] PCP - General [facility] 12/21/23
--- OUTSIDE RECORDS SUMMARY | 2024-05-22 16:35 | XMS_ITS | Clinical Summary ---
Author Organization Patient [facility] Address [address] [place] [address] Care Team Providers Care Waste Management Specialist Name Role Phone Elmira Frausto MD Primary Care Provider [phone] Allergies No known active allergies Medications vitamin iron fum-folic acid 27-0.8 mg per tablet Take 1 tablet by mouth 1 (one) time each day. 30 each 5 04/30/19 26 Active PNV no.95/ferrous fum/folic ac ( ORAL) 28-0.8 MG Tab Patient sig: Take 1 Tablet by mouth daily. 3 05/14/19 25 Discontinu ed(Therapy completed) Active Problems Problem Noted Date Diagnosed Date Gastroesophageal reflux disease 05/13/2024 Encounter for supervision of other normal , first trimester 05/13/2024 Overview (05/13/2024): 1. [facility] site: [facility]: [address] [place] [address] ([phone]) 2. Delivery site: [facility] 3. Mobile Mommas: No 4. Dating criteria: LMP 5. Blood type: O+ 6. Genetic screening: Date: Result: Panorama: Ordered Horizon: Ordered Nuchal: Scheduled Survey: MSAFP: 6. GBS: Date: 7. FOB name: Jacob Kuhnuche 8. Plans A. Epidural or other pain management -none B. Labor support identified - Jacob Uribe C. Tdap - Date: Flu - Date: D. Breast or Bottle feed: E. Baby's name - F. Circumcision - not sure 9. Hospital Course: Migraine with aura 05/13/2024 Overview (05/13/2024): With OCP use Class 1 obesity 05/13/2024 Bicornate uterus 05/12/2024 Overview (05/13/2024): Bicornuate uterus, both endometrial stripes are within normal limits. On US 05/31/2023 Estimated Date of Delivery Comme nts Yes 12/08/2024 Based on last me nstrual period of 03/03/2024 (Exact Date) Encounters Date Type Department Care Team Description 05/16/2024 3:30 PM EDT Routine [facility] [address] [place] [address] Giselle Carrero CNM Vaginal discharge (Primary Dx); 10 weeks gestation of 05/16/2024 Telephone Obstetrics [facility]cology - [facility] [address] [place] [address] Giselle Carrero CNM Problem 05/13/2024 1:30 PM EDT Clinical Support Ob[facility] - [facility] [address] [place] [address] Encounter for supervision of other normal , first trimester (Primary Dx); Encounter of female for testing for genetic disease carrier status for procreative management 04/29/2024 3:00 PM EDT Clinical Support [facility]s [facility] - [facility] [address] [place] [address] Missed period (Primary Dx) 04/03/2024 Telephone [facility]s [facility]cology - [facility] [address] [place] [address] Giovanna Goodson CNM 03/28/2024 11:00 AM EST Office Visit Obstetrics [facility] - [facility] [address] [place] [address] Giovanna Goodson, CNM Irregular menstrual cycle (Primary Dx) from Last 3 Months Surgical History Surgery Date Site/Laterality Comments WISDOM TOOTH EXTRACTION PROCEDURE: HISTORICAL WISDOM TEETH EXTRACTION Medical History Medical History Date Comments Migraines DX:Migraines wit OCP Bicornate uterus DX:Bicornate ut erus History of anxiety 2018 therapist. 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 Family History Medical History Relation Name Comments Brain cancer Half-Brother 1 Nerbin remission now No Known Problems Half-Brother 2 Denilson No Known Problems Half-Brother 3 Jerbin No Known Problems Half-Sister Charielys Osteoarthritis Maternal Grandmother No Known Problems Mother Lung cancer Paternal Grandfather Relation Name Status Comments Father Half-Brother 1 Nerbin Other Half-Brother 2 Denilson Alive Half-Brother 3 Jerbin Alive Half-Sister Charielys Alive Maternal Grandfather Maternal Grandmother Alive Mother Alive Paternal Grandfather Alive Paternal Grandmother Alive Social History Tobacco Use [...] care for your loved ones. For example, early childhood teacher or elderly care for an older adult? [...] Date of Delivery Comme nts Yes 12/08/2024 Based on last me nstrual period of 03/03/2024 (Exact Date) Sex and Gender Information Value Date Recorded [...] Yojana A1 A5 Name Clin SAB Current Summary Episode Dates Number of Fetuses Estimated Date of Delivery 05/13/2024 - Present (05/22/2024) 12/08/2024 (set by Evi Gandhi RN on 05/13/2024 based on Last Menstrual Period on 03/03/2024 (Exact Date)) Dating Summary Based On TANVIR GA Diff Last Menstrual Period on 03/03/2024 (Exact Date) 12/08/2024 Working Alternate TANVIR Entry 12/08/2024 Same Comment:Date entered prior t o episode creation Overview and Plan Delivery Plans Post-Delivery Plans Planned delivery method:Vaginal Feeding intentions:Exclusive Planned anesthesia:None Circumcision req uested:No Acceptable blood products:All Vitals Pregravid Weight Height TWG (As of 05/22/2024) Pregrav id BMI 76.2 kg (168 lb) 1.6 m (63 ) 0.454 kg (1 lb) 29.77 Notes Progress Notes - Routine Pre - 05/16/2024 - GA:10w4d 05/16/2024 - 10w4d - Giselle Carrero CNM Images from the original note were not included. CHIEF COMPLAINT: Routine Visit IDENTIFIER:lAec Hunt is a 23 y.o. female HPI:Pt is here because she has passed a lot of mucusy discharge, with some brown spots in it, and has felt some crampiness for about a month. She has a history of a miscarriage when her IUD was removed. She is worried about having another SAB. FHT 150s. Wet smear and GC/CT done today. ROS: GENERAL: normal BREAST: negative for breast lumps : negative BABY FORMULA MIXER: vaginal discharge PAST MEDICAL HISTORY: OB History Para Term AB Living 2 0 0 0 1 0 SAB IAB Ectopic Multiple Live Births 1 0 0 0 0 # Outcome Date GA Lbr Abdi/2nd Weight Sex Type Anes PTL Lv 2 Current 1 SAB Patient Active Problem List Diagnosis Bicornate uterus Gastroesophageal reflux disease Encounter for supervision of other normal , first trimester Migraine with aura Class 1 obesity SOCIAL HISTORY: Social History Tobacco Use Smoking status: Never Smokeless tobacco: Never Vaping Use Vaping status: Never Used Substance Use Topics Alcohol use: No Drug use: Not Currently Types: Marijuana/Cannabis Comment: last time in 2019 FAMILY HISTORY: Family History Problem Relation Name Age of Onset No Known Problems Mother No Known Problems Half-Sister aDnteys Brain cancer Half-Brother Nerbin 9 remission now No Known Problems Half-Brother Denilson No Known Problems Half-Brother Jerbin Osteoarthritis Maternal Grandmother Lung cancer Paternal Grandfather I have reviewed the following sections of the chart: active problem list MEDICATIONS: Your medication list Accurate as of May 16, 2024 4:32 PM. If you have any questions, ask your nurse or doctor. CONTINUE taking these medications Instructions Last Dose Given Next Dose Due vitamin iron fum-folic acid 27-0.8 mg per tablet Take 1 tablet by mouth 1 (one) time each day. Contraception: Nothing ALLERGIES: No Known Allergies PHYSICAL EXAM: Visit Vitals BP 116/83 Pulse 90 Wt 76.7 kg (169 lb) LMP 03/03/2024 (Exact Date) BMI 29.94 kg/m?? OB Status Smoking Status Never BSA 1.8 m?? APPEARANCE:Healthy, alert, active, cooperative, and in no distress ABDOMEN: soft, non-tender; bowel sounds normal; no masses, no organomegaly EXTERNAL GENITALIA: some thick, mucousy discharge present, no blood URETHRA: midline with no erythema, mass or drainage VAGINA: normal mucosa CERVIX: not evaluated UTERUS: normal size, contour, position, consistency, mobility, non-tender PSYCH: affect appropriate LABS: ASSESSMENT: 1. Vaginal discharge 2. 10 weeks gestation of PLAN: Reassured patient that all is well To call if anything changes, and to keep appointment. 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 old female at 10w1d. This is Planned. The patient feels happy about the . The FOB is supportive and happy. Possibly will do a gender reveal, hoping for a healthy baby Patient's last menstrual period was Patient's last menstrual period was 03/03/2024 (exact date). (exact date)., which would make her currently 10w1d with an Estimated Date of Delivery: 12/08/24. She is certain of her date. An ultrasound has not been ordered to confirm dating Patient has significant history of: No previous history of OB Past Medical History: Have you had or do you currently have: Diabetes? No Hypertension? No Heart disease, Mitral valve Prolapse, or Rheumatic fever? No An Autoimmune disease such as Lupus or Rheumatoid Arthritis? No Epilepsy, Seizures, or Spells? No Migraine Headaches? Yes, with OCP Stroke or loss of function or sensation? No Additional Questions: Have you ever been treated for anxiety and/or depression? Yes, anxiety used to take meds in 2018, no longer on meds. Only sees therapist. Kanika Cleaning Are you having problems with crying spells or loss of self-esteem? No Have you ever required psychiatric care? No Have you ever had hepatitis, liver disease or jaundice? No Have you ever been treated for blood clots in your veins, deep venous thrombosis, inflammation in the veins, thrombosis, phlebitis, pulmonary embolism or varicosities? No Have you had excessive bleeding after surgery or dental work? No Do you bleed more than other women after a cut or scratch? No Do you have a history of anemia? No Have you ever had Thyroid problems or taken Thyroid medications? No Do you have any other Endocrine Problems (ie. PCOS)? No, had some lab work done Have you ever been in a major accident or suffered serious trauma? No Within the last year, has anyone hit, slapped, kicked or otherwise hurt you? No In the last year, has anyone forced you to have sex when you didn't want to? No Do you feel safe at home? Yes Have you ever received a blood transfusion? No Would you refuse a blood transfusion if a doctor judged to be medically necessary? No Would you rather than receive a blood transfusion? No If you answered yes to the above questions, is this for christianity reasons? No Do you know what your blood type is or if you are Rh Negative? No Have you ever had abnormal antibodies in your blood? No Have you ever had asthma? Yes, COVID correlated asthma, no use of inhaler since 2020 Have you every had Tuberculosis? No Have you ever had any breast problems? No Have you ever breast fed? No Have you ever had any gynecological surgical procedures such as cervical conization, LEEP procedure, Laser treatment, cryosurgery of the cervix or dilation and curettage, etc? No Have you had any other surgical procedures? Yes, wisdom teeth 2015 Have you ever been hospitalized overnight for a non-surgical reason excluding normal delivery? No Have you ever had anesthesia complications? No Have you ever had an abnormal pap smear? No Do you have a history of abnormalties of the uterus? Yes, bicornate 2021 Did your mother take NORBERT or any other hormones when she was with you? No Did it take more than one year to become ? Yes Have you ever been evaluated or treated for infertility? No Is there a history of medical problems in your family which you feel might adversely affect your health or ? No Do you have any other problems we have not asked you about which you feel may be important for us to know for this ? No Do you currently have any of the following symptoms since your last menstrual period: Abdominal pain, blood in the stool or urine, chest pain, shortness of breath, coughing or vomiting up blood, your heart racing or skipping beats, nausea and/or vomiting, pain on urination, or vaginal discharge or vaginal bleeding? No OB Infection History: Do you object to being tested for Hepatitis B? No Do you object to being tested for HIV? No Do you feel that you are at high risk for coming contact with the AIDS virus? No Have you ever been treated for tuberculosis? No Have you ever received the BCG vaccine? No Have you ever had a positive skin test for Tuberculosis? No Do you live with someone who has Tuberculosis? No Have you ever been exposed to Tuberculosis? No Do you have Genital Herpes? No Does your partner have Genital Herpes? No Have you had a rash or viral illness since your last period? No Have you ever had Gonorrhea, Chlamydia, Syphilis, Venereal Warts, Trichomoniasis, Pelvic Inflammatory Disease (PID) or any other sexually transmitted disease? No Do you know if you are a Group B Streptococcus Carrier? No Did you have the Chicken Pox/Varicella? No Were you vaccinated against Chicken Pox/Varicella? Yes Have you had any other infectious diseases? No Yerielis Rubilar-Zamora has been instructed on the following: random urine drug screening initial workup and an initial urine drug screen has been ordered., She has been counseled regarding avoiding hazards, litter boxes, smoking, drug and alcohol use during Alec Hunt has also been informed of the delivery clerk provider recommendation for first trimester nuchal lucency testing to be performed during her . Alec Hunt has also been made aware of the time sensitive nature for this testing to be completed. . The patient now has a gestational age of 10w1d. The patient would be due for this testing prior to 14 weeks gestation which would be on 05/26/24 at 3 pm Ethnicity Based Genetic Testing has been reviewed and the [employer] information sheet has been provided to the patient in their After Visit Summary. The patient was also advised that genetic testing may not be covered by all insurances. The patients states that they understand this information. The patient states that she has not had the genetic screening for Horizon 14 done in the past during a previous . Results were n/a. The patient has agreed that she does want genetic testing for Horizon 14 The following Labs have been ordered: Obstetric Panel, HIV with verbal Consent, Hepatitis C, Varicella titer, Urine Culture, UDS, Panorama with gender, and Horizon 14 panel She is aware that her insurance may or may not cover Panorama and/or Horizon 14 test and discussed guzman only petit for test(s) - info given today in her after visit summary . She would like to proceed with testing. For Horizon Carrier Screening, if patient has [facility], [facility] or [facility] insurances: Not Applicable Electronically signed by: Evi Gandhi RN 05/13/24 1:38 PM EDT Last Filed Vital Signs Vital Sign Reading Time Taken Comments Blood Pressure 116/83 05/16/2024 3:42 PM EDT Pulse 90 05/16/2024 3:42 PM EDT Temperature - - Respiratory Rate 17 05/13/2024 1:38 PM EDT Oxygen Saturation - - Inhaled Oxygen Concentration - - Weight 76.7 kg (169 lb) 05/16/2024 3:42 PM EDT Height 160 cm (5' 3 ) 05/13/2024 1:38 PM EDT Body Mass Index 29.94 05/13/2024 1:38 PM EDT Plan of Treatment Upcoming Encounters Date Type Department Care Team (Late st Contact Info) Description 05/26/2024 3:00 PM EDT Ancillary Procedure Maternal Medicine - [place] [address] [place] [address] 06/03/2024 3:00 PM EDT Initial Obstetrics and Gynecology - [address] [address] Giselle Carrero, [facility] [address] [place] [address] Health Maintenance Due Date Last Done Comments DTaP,Tdap,and Td Vaccines (6 - Td or Tdap) 01/03/2021 01/03/2011, 05/26/2003, 09/13/2000, Additional history exists COVID-19 Vaccine ( season) 2023 Influenza Vaccine (Season Ended) 2024 11/20/2018, 10/23/2016, 10/26/2014, Additional history exists Social Influencers of Health Screening 03/27/2025 03/27/2024 Depression Screening 05/16/2025 05/16/2024 Gonorrhea/Chlamydia Screening 05/16/2025 05/16/2024, 05/28/2023 Cervical Cancer Screening: Pap Smear 09/19/2025 09/19/2022, 09/19/2022 Cholesterol Screening (Lipid Panel) 03/07/2029 03/07/2024, 03/07/2024 Hepatitis B Vaccines Completed 09/13/2000, 1999, 1999 IPV Vaccines Completed 05/26/2003, 10/07, 09/13/2000, Additional history exists HPV Vaccines Completed 10/26/2014, 11/06, 10/14/2012 Meningococcal ACWY Vaccine Completed 09/27/2017, HIV Screening Completed 05/13/2024, 04/04/2019 Hepatitis C Screening Completed 05/13/2024, 020 HIB Vaccines Aged Out No longer eligi ble based on patient's age to complete this topic Hepatitis A Vaccines Aged Out No long er eligible based on patient's age to complete this topic Meningococcal B Vaccine Aged Out No l onger eligible based on patient's age to complete this topic Pneumococcal Vaccine: Pediatrics (0 to 5 Years) and At-Risk Patients (6 to 64 Years) Aged Out No longer eligible based on patient's age to complete this topic RSV Immunization Patients Under 20 months Aged Out No longer eligible based on patient's age to complete this topic Procedures Procedure Name Priority Date/Time Associated Diagnosis Comments TRICHOMONAS VAGINALIS ANTIGEN Routine 05/16/2024 4:05 PM EDT Vaginal discharge CHLAMYDIA TRACHOMATIS AND NEISSERIA GONORRHOEAE PCR Routine 05/16/2024 4:05 PM EDT Vaginal discharge WET PREP, GENITAL Routine 05/16/2024 4:0 5 PM EDT Vaginal discharge CBC WITH AUTO DIFFERENTIAL Routine 05/13 3:07 PM EDT Encounter for supervision of other normal , first trimester VARICELLA ZOSTER ANTIBODY IGG Routine 05/13/2024 3:07 PM EDT Encounter for supervision of other normal , first trimester HEPATITIS B SURFACE ANTIGEN WITH CONFIRMATION Routine 05/13/2024 3:07 PM EDT Encounter for supervision of other normal , first trimester CBC AND DIFFERENTIAL Routine 05/13/2024 3:07 PM EDT Encounter for supervision of other normal , first trimester DRUG ABUSE SCREEN EXPANDED WITH REFLEX CONFIRMATION, URINE Routine 05/13/2024 3:07 PM EDT Encounter for supervision of other normal , first trimester HEPATITIS C ANTIBODY Routine 05/13/2024 3:07 PM EDT Encounter for supervision of other normal , first trimester HIV 1, 2 ANTIBODY, P24 ANTIGEN WITH REFLEX TO DIFFERENTIATION Routine 05/13/2024 3:07 PM EDT Encounter for supervision of other normal , first trimester RUBELLA ANTIBODY IGG Routine 05/13/2024 3:07 PM EDT Encounter for supervision of other normal , first trimester TREPONEMA PALLIDUM ANTIBODY WITH REFLEX TO RPR AND PARTICLE AGGLUTINATION Routine 05/13/2024 3:07 PM EDT Encounter for supervision of other normal , first trimester TYPE AND SCREEN Routine 05/13/2024 3:07 PM EDT Encounter for supervision of other normal , first trimester VENIPUNCTURE CHARGE Routine 05/13/2024 3 :07 PM EDT Encounter for supervision of normal first in first trimester THYROID STIMULATING HORMONE Routine 09/2024 3:07 PM EDT Irregular menstrual cycle CULTURE URINE Routine 05/13/2024 3:07 PM EDT Encounter for supervision of other normal , first trimester POC , URINE DIAGNOSTIC Routine 04/29/2024 3:46 [...] 03/28/2024 12:28 PM EST Irregular bleeding HM HPV Routine 09/19/2022 from Last 3 Months or Most Recently Relevant to Health Maintenance Results * Trichomonas vaginalis antigen (05/16/2024 4:05 PM EDT) Trichomonas vaginalis Negative Negative 05/16/2024 9:38 PM EDT [facility] Swab Vaginal structure / Unknown Non-blood Collection / Unknown 05/16/2024 4:05 PM EDT 05/16/2024 4:05 PM EDT Giselle Carrero CNM LAB MICROBIOLOGY - GENERAL O RDERABLES Final Result [facility] [address] [place] [address], [place] [phone] * Chlamydia trachomatis and Neisseria gonorrhoeae molecular study (05/16/2024 4:05 PM EDT) Pathologist [facility] Neisseria gonorrhoeae PCR Negative Negative LAB MOLECULAR DIAGNOSTICS METHOD 05/17/2024 10:22 AM EDT [facility] Chlamydia trachomatis PCR Negative Negative LAB MOLECULAR DIAGNOSTICS METHOD 05/17/2024 10:22 AM EDT [facility] Swab Vaginal structure / Unknown Non-blood Collection / Unknown 05/16/2024 4:05 PM EDT 05/16/2024 4:05 PM EDT Giselle Carrero [facility] MICROBIOLOGY - GENERAL O RDERABLES Final Result [facility] [address] [place] [address], [place] [phone] * Wet prep, genital (05/16/2024 4:05 PM EDT) Clue Cells, Wet Prep Negative Negative 05/16/2024 9:37 PM EDT [facility] Yeast, Wet Prep Negative Negative 05/16/2024 9:37 PM EDT [facility] Trichomonas, Wet Prep Indeterminate Negative 05/16/2024 9:37 PM EDT [facility] Comment:Refer to Trichomonas antigen. Swab Vaginal structure / Unknown Non-blood Collection / Unknown 05/16/2024 4:05 PM EDT 05/16/2024 4:05 PM EDT Giselle Carrero [facility] MICROBIOLOGY - GENERAL O RDERABLES Final Result Performing Organization Address City/[facility]/ZIP Co de Phone Number [facility] [address] [place] [address], * Hepatitis C antibody (05/13/2024 3:07 PM EDT) Hepatitis C Antibody Negative Negative LAB CHEMISTRY METHOD 05/13/2024 7:35 PM EDT [facility] Blood Venous blood specimen / Unknown Venipuncture / Unknown 05/13/2024 3:07 PM EDT 05/13/2024 3:07 PM EDT Caro Haro [facility] BLOOD ORDERABLES Final Result Performing Organization Address City/[facility]/ZIP Co de Phone Number [facility] [address] [place] [address], [place] [phone] * HIV 1,2 antibody, p24 antigen with reflex to differentiation (05/13/2024 3:07 PM EDT) HIV Combo AB/AG Negative Negative LAB CHEMISTRY METHOD 05/13/2024 7:36 PM EDT [facility] Blood Venous blood specimen / Unknown Venipuncture / Unknown 05/13/2024 3:07 PM EDT 05/13/2024 3:07 PM EDT Narrative [facility] - 05/13/2024 7:36 PM EDT This assay is a 4th generation assay allowing for earlier detection of HIV infection by detecting the presence of the HIV-1 p24 antigen as well as the traditional antibodies to HIV type 1 (including group O) and type 2. ??Use of a 4th generation assay is the current CDC recommendation for HIV screening. [facility] BLOOD ORDERABLES Final Result Performing Organization Address [facility] Co de Phone Number [facility] [address] [place] [address], * Hepatitis B surface antigen with reflex to confirmation (05/13/2024 3:07 PM EDT) Hepatitis B Surface Ag Negative Negative LAB CHEMISTRY METHOD 05/13/2024 7:07 PM EDT [facility] Blood Venous blood specimen / Unknown Venipuncture / Unknown 05/13/2024 3:07 PM EDT 05/13/2024 3:07 PM EDT Narrative [facility] - 05/13/2024 7:07 PM EDT Over the counter supplements containing high doses of biotin may interfere with this assay. ??If interference is suspected, patients shoud be retested after refraining from biotin supplements for 72 hours. [facility] BLOOD ORDERABLES Final Result Performing Organization Address [facility] Co de Phone Number [facility] [address] [place] [address], * Treponema pallidum antibody with reflex to RPR and particle agglutination (05/13/2024 3:07 PM EDT) Pathologist [facility] T. Pallidum Antibodies Negative Negative LAB CHEMISTRY METHOD 05/13/2024 7:07 PM EDT [facility] Blood Venous blood specimen / Unknown Venipuncture / Unknown 05/13/2024 3:07 PM EDT 05/13/2024 3:07 PM EDT [facility] BLOOD ORDERABLES Final Result [facility] [address] [place] [address], * Venipuncture charge (05/13/2024 3:07 PM EDT) Extra Tube Hold for add-ons. 05/13/2024 5:01 PM EDT [facility] Comment:Auto resulted. Blood Venous blood specimen / Unknown Venipuncture / Unknown 05/13/2024 3:07 PM EDT 05/13/2024 3:07 PM EDT [facility] [facility] LAB BLOOD ORDERABLES Final Result Performing Organization Address City/[facility]/ZIP Co de Phone Number [facility] ([facility], * Drug abuse screen expanded with reflex confirmation, urine (05/13/2024 3:07 PM EDT) Amphetamine Screen, Ur Negative Negative LAB CHEMISTRY METHOD 05/13/2024 7:18 PM EDT [facility] Comment:Certain OTC medicati ons containing ephedrine, phenylephrine, pseudoephedrine and phenylpropanolamine can cause false positive results. Barbiturate Screen, Ur Negative Negative LAB CHEMISTRY METHOD 05/13/2024 7:18 PM EDT [facility] Benzodiazepine Screen, Ur Negative Negative LAB CHEMISTRY METHOD 05/13/2024 7:18 PM EDT [facility] Cocaine Screen, Ur Negative Negative LAB CHEMISTRY METHOD 05/13/2024 7:18 PM EDT [facility] Opiate Screen, Ur Negative Negative LAB CHEMISTRY METHOD 05/13/2024 7:18 PM EDT [facility] Cannabinoid (THC) Screen, Ur Negative Negative LAB CHEMISTRY METHOD 05/13/2024 7:18 PM EDT [facility] Comment:Specimens from patie nts taking pantoprazole sodium (Protonix) have been shown to produce false positive results. Fentanyl, Ur Negative Negative LAB CHEMISTRY METHOD 05/13/2024 7:18 PM EDT [facility] Oxycodone Screen, Ur Negative Negative LAB CHEMISTRY METHOD 05/13/2024 7:18 PM EDT [facility] Urine Urine specimen obtained by clean catch procedure / Unknown Non-blood Collection / Unknown 05/13/2024 3:07 PM EDT 05/13/2024 3:07 PM EDT Narrative [facility] - 05/13/2024 7:18 PM EDT Assay cutoffs: Amphetamines ? 1000 ng/mL Barbiturates ?200 ng/mL Benzodiazepines ?? 200 ng/mL Cocaine ? 300 ng/mL Fentanyl ?1 ng/mL Opiates ? 300 ng/mL Oxycodone ? 100 ng/mL THC ?50 ng/mL Semi-quantitative assay for screening purposes only. Unconfirmed screening result should not be used for non-medical purposes. *POSITIVE RESULTS ARE AUTOMATICALLY SENT FOR ALTERNATE METHOD CONFIRMATION* Caro Haro [facility] LAB URINE ORDERABLES Final Result [facility] [address] [place] [address], * (ABNORMAL) CBC auto differential (05/13/2024 3:07 PM EDT) WBC 11.5(H) 4.8 - 10.8 K/[facility] LAB HEMETOLOGY METHOD 05/13/2024 6:47 PM EDT [facility] RBC 5.20(H) 3.80 - 4.80 M/[facility] LAB HEMETOLOGY METHOD 05/13/2024 6:47 PM [facility] Hemoglobin 14.3 11.5 - 16.0 g/dL LAB HEMETOLOGY METHOD 05/13/2024 6:47 PM [facility] Hematocrit 44.0 35.0 - 47.0 % LAB HEMETOLOGY METHOD 05/13/2024 6:47 PM [facility] MCV 84.1 79.0 - 98.0 FL LAB HEMETOLOGY METHOD 05/13/2024 6:47 PM [facility] MCH 27.3 27.0 - 32.0 pcg LAB HEMETOLOGY METHOD 05/13/2024 6:47 PM [facility] LAB MCHC 32.5 32.0 - 37.0 g/dL LAB HEMETOLOGY METHOD 05/13/2024 6:47 PM [facility] RDW 13.2 11.0 - 15.0 % LAB HEMETOLOGY METHOD 05/13/2024 6:47 PM [facility] Platelets 239 130 - 400 K/mcL LAB HEMETOLOGY METHOD 05/13/2024 6:47 PM [facility] MPV 12.3(H) 7.0 - 11.0 FL LAB HEMETOLOGY METHOD 05/13/2024 6:47 PM [facility] NRBC 0.0 <1.0 % LAB HEMETOLOGY METHOD 05/13/2024 6:47 PM [facility] NRBC Absolute 0.00 <0.10 K/mcL LAB HEMETOLOGY METHOD 05/13/2024 6:47 PM [facility] Neutrophils Relative 70.6 % LAB HEMETOLOGY METHOD 05/13/2024 6:47 PM [facility] Lymphocytes Relative 22.9 % LAB HEMETOLOGY METHOD 05/13/2024 6:47 PM [facility] Monocytes Relative 5.6 % LAB HEMETOLOGY METHOD 05/13/2024 6:47 PM EDT [facility] Eosinophils Relative 0.2 % LAB HEMETOLOGY METHOD 05/13/2024 6:47 PM EDT [facility] Basophils Relative 0.4 % LAB HEMETOLOGY METHOD 05/13/2024 6:47 PM EDT [facility] Immature Granulocytes Relative 0.3 % LAB HEMETOLOGY METHOD 05/13/2024 6:47 PM EDT [facility] Neutrophils Absolute 8.13(H) 1.50 - 7.00 K/mcL LAB HEMETOLOGY METHOD 05/13/2024 6:47 PM EDT [facility] Lymphocytes Absolute 2.64 1.00 - 5.00 K/mcL LAB HEMETOLOGY METHOD 05/13/2024 6:47 PM EDT [facility] Monocytes Absolute 0.65 0.20 - 1.00 K/mcL LAB HEMETOLOGY METHOD 05/13/2024 6:47 PM EDT [facility] Eosinophils Absolute 0.02 0.00 - 0.50 K/mcL LAB HEMETOLOGY METHOD 05/13/2024 6:47 PM EDT [facility] Basophils Absolute 0.05 0.00 - 0.20 K/mcL LAB HEMETOLOGY METHOD 05/13/2024 6:47 PM EDT [facility] Immature Granulocytes Absolute 0.04(H) 0.00 - 0.03 K/mcL LAB HEMETOLOGY METHOD 05/13/2024 6:47 PM EDT [facility] Blood Venous blood specimen / Unknown Venipuncture / Unknown 05/13/2024 3:07 PM EDT 05/13/2024 3:07 PM EDT Caro ORTIZ LAB BLOOD ORDERABLES Final Result [facility] [address] [place] [address], [place] [phone] * Rubella antibody IgG (05/13/2024 3:07 PM EDT) [facility] Rubella IgG Quant 10.2 >=10.0 I Unit/mL LAB CHEMISTRY METHOD 05/13/2024 9:15 PM EDT [facility] Rubella IgG Antibody Interp Positive Positive LAB CHEMISTRY METHOD 05/13/2024 9:15 PM EDT [facility] Blood Venous blood specimen / Unknown Venipuncture / Unknown 05/13/2024 3:07 PM EDT 05/13/2024 3:07 PM EDT us Caro Haro [facility] LAB BLOOD ORDERABLES Final Result Performing Organization Address City/[facility]/ZIP Co de Phone Number [facility] [address] [place] [address], [place] [phone] * Type and screen (05/13/2024 3:07 PM EDT) [facility] ABO Group O 05/14/2024 8:57 AM EDT [facility] Rh Type Positive 05/14/2024 8:57 AM EDT [facility] Antibody Screen Negative 05/14/2024 8:57 AM EDT [facility] Blood Venous blood specimen / Unknown Venipuncture / Unknown 05/13/2024 3:07 PM EDT 05/13/2024 3:07 PM EDT us Caro Haro [facility] LAB BLOOD BANK TEST ORDERAB LES Final Result [facility] [address] [place] [address], [place] [phone] * Culture urine (05/13/2024 3:07 PM EDT) [facility] Culture, Urine No growth 05/14/2024 1:09 PM EDT [facility] Urine Urine specimen obtained by clean catch procedure / Unknown Non-blood Collection / Unknown 05/13/2024 3:07 PM EDT 05/13/2024 3:07 PM EDT [facility] LAB MICROBIOLOGY - GENERAL ORDERABLES Final Result Performing Organization Address [facility] Co de Phone Number [facility] [address] [place] [address], [place] [phone] * Varicella zoster antibody IgG (05/13/2024 3:07 PM EDT) [facility] Varicella IgG Positive Positive LAB CHEMISTRY METHOD 05/14/2024 8:59 AM EDT [facility] Varicella Zoster IgG 3.72 >=1.00 S/CO LAB CHEMISTRY METHOD 05/14/2024 8:59 AM EDT [facility] Blood Venous blood specimen / Unknown Venipuncture / Unknown 05/13/2024 3:07 PM EDT 05/13/2024 3:07 PM EDT Narrative [facility] - 05/14/2024 8:59 AM EDT Interpretation >= 1.00 S/CO is considered to be consistent with Immunity [facility] BLOOD ORDERABLES Final Result Performing Organization Address [facility] de Phone Number [facility] [address] [place] [address], [place] [phone] * Thyroid stimulating hormone (05/13/2024 3:07 PM EDT) [facility] TSH 1.26 0.40 - 4.00 mcIU/mL LAB CHEMISTRY METHOD 05/15/2024 2:25 PM EDT [facility] Blood Venous blood specimen / Unknown Venipuncture / Unknown 05/13/2024 3:07 PM EDT 05/13/2024 3:07 PM EDT Giovanna ORTIZ LAB BLOOD ORDERABLES Fi nal Result Performing Organization Address [facility]/ZIP Co de Phone Number [facility] [address] [place] [address], [place] [phone] * (ABNORMAL) POC , urine manually resulted (04/29/2024 3:46 PM EDT) Pathologist [facility] HCG, Ur POC Positive(A ) Negative POC hCG Int QC Pass? Yes Yes Urine Urine specimen obtained by clean catch procedure / Unknown 04/29/2024 3:46 PM EDT Giselle ORTIZ POINT OF CARE TEST ENTER/GEMMA T ORDERABLES Final Result * Thyroid stimulating hormone with reflex to free t4 and free t3 (03/28/2024 12:28 PM EST) TSH 2.11 0.40 - 4.00 mcIU/mL LAB CHEMISTRY METHOD 03/28/2024 4:38 PM EST [facility] Blood Venous blood specimen / Unknown Venipuncture / Unknown 03/28/2024 12:28 PM EST 03/28/2024 12:28 PM EST Giovanna ORTIZ LAB BLOOD ORDERABLES Fi nal Result [facility] [address] [place] [address], [place] [phone] * (ABNORMAL) Testosterone free, bioavailable and total (03/28/2024 12:28 PM EST) Testosterone 45 9 - 48 ng/dL LAB CHEMISTRY METHOD 03/28/2024 4:38 PM EST [facility] Testosterone, Free 0.7(H) 0.0 - 0.5 ng/dL LAB CHEMISTRY METHOD 03/28/2024 4:38 PM EST [facility] Testosterone, Bioavailable 16(H) 1 - 9 ng/dL LAB CHEMISTRY METHOD 03/28/2024 4:38 PM EST [facility] Sex Hormone Binding 39.9 See Comment nmol/L LAB CHEMISTRY METHOD 03/28/2024 4:38 PM EST [facility] Comment: FEMALES: ??pre-menopausal ?? 10.8 [...] LAB CHEMISTRY METHOD 03/28/2024 4:38 PM EST [facility] Blood Venous blood specimen / Unknown Venipuncture / Unknown 03/28/2024 12:28 PM EST 03/28/2024 12:28 PM EST Giovanna Goodson [facility] LAB BLOOD ORDERABLES Fi nal Result [facility] [address] [place] [address], * Prolactin (03/28/2024 12:28 PM EST) Prolactin 23.20 See Comment ng/mL LAB CHEMISTRY METHOD 03/28/2024 4:32 PM EST [facility] Comment: Prolactin Reference Ranges (ng/mL) ??Non ?2.2 - ??30.3 ? 8.1 - 347.6 ??Postmenopausal 0.7 - ??31.5 Blood Venous blood specimen / Unknown Venipuncture / Unknown 03/28/2024 12:28 PM EST 03/28/2024 12:28 PM EST Giovanna Goodson [facility] LAB BLOOD ORDERABLES Fi nal Result Performing Organization Address [facility] Co de Phone Number [facility] [address] [place] [address], [place] [phone] * Estradiol (03/28/2024 12:28 PM EST) Estradiol 491 See below pcg/mL LAB CHEMISTRY METHOD 03/28/2024 4:32 PM EST [facility] Comment: ESTRADIOL REFERENCE RANGES (PG/ML) [...] EST 03/28/2024 12:28 PM EST Giovanna Goodson [facility] LAB BLOOD ORDERABLES Fi nal Result Performing Organization Address [facility]/ZIP Co de Phone Number [facility] [address] [place] [address], [place] [phone] * Dehydroepiandrosterone (03/28/2024 12:28 PM EST) Pathologist [facility] DHEA (Dehydroepiandroster one), Unconjugated, LC/MS/MS 491 ng/dL 04/03/2024 10:35 AM EST [facility] Comment: Adult Female Reference Ranges ??Pre-Menopausal ?Mid Follicular: 385-1143 ng/dL ?Surge: ?345-2030 ng/dL ?Mid Luteal: ? 414-1295 ng/dL ??Post-Menopausal ?77-851 ng/dL This test was developed and its analytical performance characteristics have been determined by [facility]. It has not been cleared or approved by FDA. This assay has been validated pursuant to the CLIA regulations and is used for clinical purposes. Test Performed at: [facility] [address] [place], [place] ??[id number] ? I Nghia TOBAR, PhD, PAUL Blood Venous blood specimen / Unknown Venipuncture / Unknown 03/28/2024 12:28 PM EST 03/28/2024 12:28 PM EST Giovanna Goodson [facility] LAB BLOOD ORDERABLES Fi nal Result [facility] [address] [place] [phone] * Hemoglobin A1c (03/28/2024 12:28 PM EST) Pathologist [facility] Hemoglobin A1C 5.3 <6.5 % LAB CHEMISTRY METHOD 03/28/2024 9:02 PM EST [facility] Mean Bld Glu Estim. 105 mg/dL LAB CHEMISTRY METHOD 03/28/2024 9:02 PM EST [facility] Blood Venous blood specimen / Unknown Venipuncture / Unknown 03/28/2024 12:28 PM EST 03/28/2024 12:28 PM EST Giovanna Goodson [facility] LAB BLOOD ORDERABLES Fi nal Result Performing Organization Address City/[facility]/ZIP Co de Phone Number [facility] [address] [place] [address], * Luteinizing hormone (03/28/2024 12:28 PM EST) [facility] Luteinizing Hormone 2.0 See Comment mIU/mL LAB CHEMISTRY METHOD 03/28/2024 4:31 PM EST [facility] Blood Venous blood specimen / Unknown Venipuncture / Unknown 03/28/2024 12:28 PM EST 03/28/2024 12:28 PM EST Narrative [facility] - 03/28/2024 4:31 PM EST LH REFERENCE RANGES (MIU/ML) FEMALES NORMALLY MENSTRUATING: FOLLICULAR PHASE ??1.9 - 12.8 MIDCYCLE PEAK ?22.8 - 76.1 LUTEAL PHASE ?0.6 - 13.5 POSTMENOPAUSAL: ON HRT ?1.1 - ??52.4 UNTREATED ? 8.6 - ??61.8 Giovanna Goodson [facility] LAB BLOOD ORDERABLES Fi nal Result [facility] [address] [place] [address], * Cervical Cancer Screening: HPV (09/19/2022) [facility] Cervical Cancer Screening: HPV no interpreta tion,abstr acted Historical Provider HEALTH MAINTENANCE Final Result from Last 3 Months or Most Recently Relevant to Health Maintenance Insurance [facility] [facility] Care Teams Waste Management Specialist Relationship Specialty Start Date End Date Elmira Frausto MD [address] [place] PCP - General Internal Medicine 02/27/19
[2024-06-09 22:34] VITALS: BMI 29.2
== END 2024-05-22 14:27 | disposition home or self-care (01) ==
LOC: HO.ENCR 13:32
PROVIDERS: PCP Internal Medicine; Visit Provider Dietitian, Registered
DX: E28.1 Androgen excess (principal)

== ENCOUNTER → 2024-05-22 13:32 | Outpatient (BNVA) | payer OTHER, SELFPAY | PROVIDERS: PCP Internal Medicine; Visit Provider Dietitian, Registered | DX: E28.1 Androgen excess (principal); Z71.3 Dietary counseling and surveillance | CPT/HCPCS: 97802 ==

== ENCOUNTER 2024-06-18 12:39 | Outpatient (AMB) | payer OTHER, SELFPAY ==
[2024-06-18 12:42] VITALS: BMI 30.1
--- NOTE | 2024-06-18 12:42 | MHC.AMNUTRGE ---
VS Expanded 06/18/24 12:42 Height 5 ft 3 in Weight 169 lb 12.095 oz BMI 30.1 Intake Visit Reasons: Hyperandrogenemia Allergies No Known Allergies Allergy (Verified 05/06/24 13:09) Nutrition Presentation Details: Pt presents for MNT f/u for hypogandrogenemia Pt is also 15 wks . Pt is accompanied by during this appt. Reports having increased nausea, and heart burn. Pt has pending appt with OB in July 02. Pt admits to fried food intake and other high fat foods BS Monitoring Most Recent Diabetes Results: No Data to Display [facility] Medical History (Updated 05/06/24 @ 13:13 by Jair Sin MD) Hyperandrogenemia Surgical History (Updated 05/06/24 @ 13:09 by SARAH Vernon) No pertinent past surgical history Family History Mother No known health problems Father No problems noted. 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 Category: Medical Plan pre gravid wt 167 lbs current wt 170 lbs Expected due date Dec 21, 2024, Weeks gestation : 15 wks Recommended wt gain during : 15-25 lbs (has gained 3 lbs in 15 wks gestation) Wt: 83 Kg (pregravid wt ) Est kcal needs as per MSJ: 1800 + 300 2nd/3rd trimester (40% carb, 30% protein/fat) Est fluid needs as per 25-30 ml/d: 2500 Est prot per day as per 1-1.2 g/kg bw: 80g/d Recommend fiber intake : 8-10 g per day and gradually increase to 25-28 g per day for women and 35-38 g for men or as tolerated Recommend sodium intake per day : less than 2000 mg Educated patient on: ( R = reviewed V = verbalizes understanding N/R = needs review N/A = not applicable Food sources of carbohydrate, adequate serving sizes and its role in various health conditions: R Differences between complex carbohydrates a simple carbohydrates, role of fiber in diet: R Lean protein sources of foods: R Differences between types of fats and role in diet (mono on saturated fat fatty acids, saturated fatty acids, trans fats): R Food sources of sodium in salt and healthy modifications for heart health in kidney health: R V R/V Vitamins and minerals: R V N/R Healthy plate method concept: R V N/R Physical activity: Benefits a precaution: R V N/R REviewed nutrittion during /food safety Patient Instructions: Switch to low fat food choices (baked, broiled, steam, sandwiches vs pizza, boiled plantain vs fried ) this will also help reduce acid reflux Choose yogurt with fruit as snack Coding Level of Care Code Nutr Indiv Subseq (25330) Diagnoses Hyperandrogenemia E28.1 Time Spent (min) 30
--- OUTSIDE RECORDS SUMMARY | 2024-06-18 13:00 | XMS_ITS | Clinical Summary ---
Author Organization Patient [facility] Address [address] [place] [address] Care Team Providers Care Sustainability Coordinator Name Role Phone Elmira Frausto MD Primary Care Provider [phone] Allergies No known active allergies Medications vitamin iron fum-folic acid 27-0.8 mg per tablet Take 1 tablet by mouth 1 (one) time each day. 30 each 04/29/2024 Active Active Problems Problem Noted Date Diagnosed Date Alpha thalassemia silent carrier 05/22/2024 Overview (05/22/2024): Horizon 14 Panel Positive: Silent Carrier for Alpha Thalassemia (aa/a-). 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 Depending on carrier status of the patient's partner, this couple may be at increased risk to have a child with Hemoglobin H Disease. Carrier screening of the patient's partner is suggested. 05/22/24 pt notified. Order placed in [facility] portal for FOB Gastroesophageal reflux disease 05/13/2024 Encounter for supervision of other normal , first trimester 05/13/2024 Overview (05/23/2024): 1. [place] site: [facility]: [address] [place] [address] ([phone]) 2. Delivery site: [facility] 3. Mobile Mommas: No 4. Dating criteria: LMP 5. Blood type: O+ 6. Genetic screening: Date: Result: Panorama: Low risk XY 05/15/24 Horizon: Negative x 13, Silent Alpha thalassemia carrier Nuchal: Scheduled Survey: MSAFP: 6. GBS: Date: 7. FOB name: Jacob Khan 8. Plans A. Epidural or other pain management -none B. Labor support identified - Jacob Khan C. Tdap - Date: Flu - Date: D. Breast or Bottle feed: E. Baby's name -boy F. Circumcision - not sure 9. Hospital Course: Migraine with aura 05/13/2024 Overview (05/13/2024): With OCP use Class 1 obesity 05/13/2024 Bicornate uterus 05/12/2024 Overview (05/26/2024): Bicornuate uterus, both endometrial stripes are within normal limits. On US 05/31/2023 Nuchal US -The uterus is bicornuate. The is in the right horn of the uterus Estimated Date of Delivery Comme nts Yes 12/08/2024 Based on last me nstrual period of 03/03/2024 (Exact Date) Encounters Date Type Department Care Team Description 06/12/2024 2:15 PM EDT Routine Obstetrics and Gynecology [address] [phone] Francine Nicholas CNM Vaginal discharge during in second trimester (Primary Dx); 14 weeks gestation of 06/12/2024 Telephone Obst[facility]s [facility] - [facility] [address] [place], [place] [phone] Giselle Carrero CNM Vaginal Discharge 06/12/2024 Nurse Triage Obstetrics and Gynecology - [facility] [address] [place], [place] [phone] Giselle Carrero CNM 06/03/2024 3:00 PM EDT Initial Obstetrics and Gynecology - [facility] [address] [place], [place] [phone] Giselle Carrero CNM GA: 13w1d 06/02/2024 1:26 PM EDT - 06/02/2024 11:59 PM EDT Hospital Encounter Radiology Department - [address] [phone] Bleeding in early Discharge Disposition: Home or Self Care 06/02/2024 9:45 AM EDT Routine Obstetrics and Gynecology - [address] [phone] Gavi Childress CNM Bleeding in early (Primary Dx); Bicornate uterus 06/02/2024 Telephone Obstetrics and Gynecology - [address] [phone] Gavi Childress CNM Incoming Call 06/02/2024 Telephone Obstetrics [facility]cology - [facility] [address] [place], [place] [phone] Giselle Carrero CNM bleeding in 05/26/2024 3:00 PM EDT Ancillary Procedure Maternal Medicine - [address] [phone] Encounter for supervision of other normal , first trimester; First trimester bleeding 05/23/2024 Telephone Obstetrics [facility]necology - [place] [address] [place], [place] [phone] Giselle Carrero CNM Problem 05/16/2024 3:30 PM EDT Routine Obstetrics and Gynecology - [place] [address] [place], [place] [phone] Giselle Carrero CNM Vaginal discharge (Primary Dx); 10 weeks gestation of 05/16/2024 Telephone Obstetrics and Gynecology - [place] [address] [place], [place] [phone] Giselle Carrero CNM Problem 05/13/2024 1:30 PM EDT Clinical Support Obstetrics and Gynecology - [place] [address] [place], [place] [phone] Encounter for supervision of other normal , first trimester (Primary Dx); Encounter of female for testing for genetic disease carrier status for procreative management 04/29/2024 3:00 PM EDT Clinical Support Obstetrics and Gynecology [address] [place] [phone] Missed period (Primary Dx) 04/03/2024 Telephone Obstetrics and Gynecology [address] [place] [phone] Giovanna Goodson CNM 03/28/2024 11:00 AM EST Office Visit Obstetrics and Gynecology [address] [place] [phone] Giovanna Goodson CNM Irregular menstrual cycle (Primary [...] care for your loved ones. For example, child caregiver or elderly care for an older adult? [...] Estimated Date of Delivery 05/13/2024 - Present (06/18/2024) 12/08/2024 (set by Evi Gandhi RN on [...] Vitals Pregravid Weight Height TWG (As of 06/18/2024) Pregrav id BMI 76.2 kg (168 lb) 1.6 m (63 ) 0 kg (0 lb) 29.77 Notes Progress Notes - Routine Pre elise - 06/12/2024 - GA:14w3d 06/12/2024 - 14w3d - Francine Nicholas CNM OB Visit: Vitals BP: 108/83 Weight: 76.2 kg (168 lb) 24 y.o. old female at 14w3d. Doing well. Here for OB sick visit, vaginal spotting dark brown and discharge for the past 4 weeks accompanied with cramping. No odor or itching. She had a normal first trimester US, and has upcoming FAS. Her BP is reviewed and is Normal. Spec exam done- no active bleeding, discharge white and watery- wetprep collected to rule out infection. Neg STD testing recently. Pelvic rest encouraged. FHT- 150. Signs and symptoms of labor reviewed including reasons to call triage. Problem List reviewed and updated. RTO 2 weeks for ROB. Francine Nicholas CNM on 06/12/2024 at 3:12 PM EDT Progress Notes - Initial Pre - 06/03/2024 - GA:13w1d 06/03/2024 - w1d - Giselle Carrero CNM Subjective Sasha Hunt is a 24 y.o. at 13w1d with a working estimated date of delivery of 12/08/2024, by Last Menstrual Period who presents for an initial visit. This is planned. Had neg GC/CT on 05/16/24. Yesterday when she got up out of bed she passed a long oval clot. She was seen by Gavi and had a normal U/S. HPI OB History Para Term AB Living 2 0 0 0 1 0 SAB IAB Ectopic Multiple Live Births 1 0 0 0 0 # Outcome Date GA Lbr Abdi/2nd Weight Sex Type Anes PTL Lv 2 Current 1 SAB [place] Depression Scale Total: 0 Gynecology History Past Medical History: Diagnosis Date Bicornate uterus DX:Bicornate uterus History of anxiety 2018 therapist. Kanika Cleaning History of asthma 2020 COVID induced asthma,no inhaler since 2020 Migraines DX:Migraines wit OCP Past Surgical History: Procedure Laterality Date WISDOM TOOTH EXTRACTION PROCEDURE: HISTORICAL WISDOM TEETH EXTRACTION Family History Problem Relation Name Age of Onset No Known Problems Mother No Known Problems Half-Sister Charielys Brain cancer Half-Brother Nerbin 9 remission now No Known Problems Half-Brother Denilson No Known Problems Half-Brother Jerbin Osteoarthritis Maternal Grandmother Lung cancer Paternal Grandfather Social History Socioeconomic History Marital status: Spouse name: Not on file Number of children: Not on file Years of education: Not on file Highest education level: Not on file Occupational History Not on file Tobacco Use Smoking status: Never Smokeless tobacco: Never Vaping Use Vaping status: Never Used Substance and Sexual Activity Alcohol use: No Drug use: Not Currently Types: Marijuana/Cannabis Comment: last time in 2019 Sexual activity: Yes Partners: Male Other Topics Concern Not on file Social History Narrative Planned :Yes FOB name/age/phone #: Jacob Khan [birth year] phone [phone] Lives with: and his grandmother Other Children: Support system in place:Yes Pets:Yes, dogs 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 FOB occupation: [employer] Smoker/Substance Use: No FOB Smoker/Substance Use:No Pt Ethnic Background: FOB Ethnic Background: Current Outpatient Medications Medication Sig Dispense Refill vitamin iron fum-folic acid 27-0.8 mg per tablet Take 1 tablet by mouth 1 (one) time each day. 30 each 0 No current facility-administered medications for this visit. No Known Allergies The following portions of the patient's chart were reviewed in this encounter and updated as appropriate: Review of Systems Objective Physical Exam Weight: 76.6 kg (168 lb 12.8 oz) Expected Total Weight Gain: 7 kg (15 lb)-11.5 kg (25 lb) Pregravid BMI: 29.77 BP: 118/84 Heart Rate: 150 HEENT: reactive Thyroid: normal Lymphatic: normal Neurological : A&O x3 Skin: clear Cardiovascular: regular rhythm Pulmonary: CTA Breast: normal Abdominal: gravid Musculoskeletal: normal Vulva findings: clear Vagina findings: clear, small amount dark discharge Cervix findings: closed Uterus size weeks: Adnexa findings: Rectum findings: Ischial spines findings: Sacrum shape: Subpubic arch width: Diagonal conjugate assessed: Pelvic type: Assessment/Plan Encounter for supervision of other normal , first trimester (Primary) 13 weeks gestation of Progress Notes - Routine Pre elise - 06/02/2024 - GA:13w0d 06/02/2024 - 13w0d - Gavi Fisher CNM 06/02/2024 Chief Complaint Patient presents with Routine Visit Subjective: Sasha Hunt is a 24 y.o. who presents for vaginal bleeding. Started this morning, no recent IC, has had low-level cramping for weeks, no increase. No urinary sx. Had neg GC/CT on 05/16, declines repeat. NT on 05/26 WNL, bicornuate uterus noted. Review of Systems: As in HPI. Patient Active Problem List Diagnosis Bicornate uterus Gastroesophageal reflux disease Encounter for supervision of other normal , first trimester Migraine with aura Class 1 obesity Alpha thalassemia silent carrier Past Medical History: Diagnosis Date Bicornate uterus DX:Bicornate uterus History of anxiety 2018 therapist. Kanika Cleaning History of asthma 2020 COVID induced asthma,no inhaler since 2020 Migraines DX:Migraines wit OCP Past Surgical History: Procedure Laterality Date WISDOM TOOTH EXTRACTION PROCEDURE: HISTORICAL WISDOM TEETH EXTRACTION Family History Problem Relation Name Age of Onset No Known Problems Mother No Known Problems Half-Sister Danteys Brain cancer Half-Brother Nerveto 9 remission now No Known Problems Half-Brother Denilson No Known Problems Half-Brother Jerveto Osteoarthritis Maternal Grandmother Lung cancer Paternal Grandfather Social History Socioeconomic History Marital status: Spouse name: Not on file Number of children: Not on file Years of education: Not on file Highest education level: Not on file Occupational History Not on file Tobacco Use Smoking status: Never Smokeless tobacco: Never Vaping Use Vaping status: Never Used Substance and Sexual Activity Alcohol use: No Drug use: Not Currently Types: Marijuana/Cannabis Comment: last time in 2019 Sexual activity: Yes Partners: Male Other Topics Concern Not on file Social History Narrative Planned :Yes FOB name/age/phone #: Jacob Khan [birth year] phone [phone] Lives with: and his grandmother Other Children: Support system in place:Yes Pets:Yes, dogs 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 Authorizing Provider vitamin iron fum-folic acid 27-0.8 mg per tablet Take 1 tablet by mouth 1 (one) time each day. 04/29/24 04/29/25 Giselle Carrero CNM No Known Allergies Objective: Vitals: 06/02/24 0900 04/28/25 1011 BP: 118/78 Pulse: 92 Weight: 76.7 kg (169 lb 3.2 oz) Gen: Well-appearing on today's exam NEUROLOGIC: speech fluent, grossly intact PSYCH: Mood and affect appropriate. Alert and oriented x 3. ABDOMEN: FH 13 weeks FHR 150 PELVIC: External Genitalia: Normal architecture, without lesions Urethral meatus: normal Vagina: normal mod amt red blood Cervix: Normal appearance, red blood seen coming from os Perianal area: No lesions. Assessment/Plan: 24 y.o. with: 1. Bleeding in early US OB Less 14 Wks Single or First Gestation 2. Bicornate uterus Orders Placed This Encounter Procedures US OB Less 14 Wks Single or First Gestation Standing Status: Future Standing Expiration Date: 06/02/2025 Order Specific Question: In what REGION should this be scheduled? Answer: [facility] [[id number]] Order Specific Question: In what [place] LOCATION should this be scheduled? Answer: [facility] [address] [facility] [[id number]] Will get stat u/s, f/u based on results. Advised NPV for now Follow up in about 1 day (around 06/03/2024) for IP as scheduled. Gavi Childress CNM Progress Notes - Routine Pre - 05/16/2024 - GA:10w4d 05/16/2024 - 10w4d - Giselle Carrero CNM Images from the original note were not included. CHIEF COMPLAINT: Routine Visit IDENTIFIER:Sasha Hunt is a 23 y.o. 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 old female [...] to the above questions, is this for evangelical reasons? No Do you know what your [...] you had any other infectious diseases? No Sasha Hunt has been instructed on the following: random urine drug screening initial workup and an initial urine drug screen has been ordered., She has been counseled regarding avoiding hazards, litter boxes, smoking, drug and alcohol use during Sasha Hunt has also been informed of the drapery cutter provider recommendation for first trimester nuchal lucency testing to be performed during her . Sasha Hunt has also been made aware of the time sensitive nature for this testing to be completed. . The patient now has a gestational age of 10w1d. The patient would be due for this testing prior to 14 weeks gestation which would be on 05/26/24 at 3 pm Ethnicity Based Genetic Testing has been reviewed and the [employer] information sheet has been provided to the [...] For Horizon Carrier Screening, if patient has [facility], [facility]: Not Applicable Electronically signed by: Evi Gandhi RN 05/13/24 1:38 PM EDT Last Filed Vital Signs Vital Sign Reading Time Taken Comments Blood Pressure 108/83 06/12/2024 2:30 PM EDT Pulse 78 06/12/2024 1:00 PM EDT Temperature - - Respiratory Rate 17 05/13/2024 1:38 PM EDT Oxygen Saturation - - Inhaled Oxygen Concentration - - Weight 76.2 kg (168 lb) 06/12/2024 2:30 PM EDT Height 160 cm (5' 3 ) 05/13/2024 1:38 PM EDT Body Mass Index 29.76 05/13/2024 1:38 PM EDT Plan of Treatment Upcoming Encounters Date Type Department Care Team (Late st Contact Info) Description 07/02/2024 1:00 PM EDT Routine Obstetrics [facility]necology - [facility] [address] [place] [address] Giselle Carrero [address] [address] 07/30/2024 4:00 PM EDT Routine Obstetrics and Gynecology - [address] [phone] Caro Haro [address] [address] 08/01/2024 2:00 PM EDT Ancillary Procedure Maternal Medicine - [address] [phone] 08/27/2024 11:00 AM EDT Routine Obstetrics and Gynecology - [facility] [address] [place] [address] Giselle Carrero CNM [address] [place] [id number] Health Maintenance Due Date Last Done Comments DTaP,Tdap,and Td Vaccines (6 - Td or Tdap) 01/03/2021 01/03/2011, 05/26/2003, 09/13/2000, Additional history exists COVID-19 Vaccine ( season) 2023 Influenza Vaccine (Season Ended) 2024 11/20/2018, 10/23/2016, 10/26/2014, Additional history exists Social Influencers of Health Screening 03/27/2025 03/27/2024 Depression Screening 06/12/2025 06/12/2024 Cervical Cancer Screening: Pap Smear 09/19/2025 09/19/2022, 09/19/2022 Cholesterol Screening (Lipid Panel) 03/07/2029 03/07/2024, 03/07/2024 Hepatitis B Vaccines Completed 09/13/2000, 1999, 1999 IPV Vaccines Completed 05/26/2003, 10/07, 09/13/2000, Additional history exists HPV Vaccines Completed 10/26/2014, 11/06, 10/14/2012 Meningococcal ACWY Vaccine Completed 09/27/2017, HIV Screening Completed 05/13/2024, 04/04/2019 Hepatitis C Screening Completed 05/13/2024, 020 Gonorrhea/Chlamydia Screening Discontinued 05/16/2024, 05/28/2023 HIB Vaccines Aged Out No longer eligi [...] Associated Diagnosis Comments TRICHOMONAS VAGINALIS ANTIGEN Routine 06/12/2024 3:18 PM EDT Vaginal discharge during in second trimester WET PREP, GENITAL Routine 06/12/2024 3:1 8 PM EDT Vaginal discharge during in second trimester US OB LESS 14 WKS SINGLE OR FIRST GESTATION STAT 06/02/2024 1:48 PM EDT Bleeding in early US OB LESS 14 WKS SINGLE OR FIRST GESTATION STAT 05/26/2024 2:59 PM EDT First trimester bleeding US OB LESS 14 WKS NUCHAL MEASUREMENT Routine 05/26/2024 2:59 PM EDT Encounter for supervision of other normal , first trimester PANORAMA TEST Routine 11:06 AM EDT HORIZON 14, SYLVIA Routine 05/21/2024 5: 27 PM EDT TRICHOMONAS VAGINALIS ANTIGEN Routine 05/16/2024 4:05 PM [...] Health Maintenance Results * Trichomonas vaginalis antigen (06/12/2024 3:18 PM EDT) Only the most recent of2 resultswithin the time period is included. Trichomonas vaginalis Negative Negative 06/12/2024 8:14 PM EDT [facility] Swab Vaginal structure / Unknown Non-blood Collection / Unknown 06/12/2024 3:18 PM EDT 06/12/2024 3:18 PM EDT Francine ORTIZ LAB MICROBIOLOGY - GENERAL ORD ERABLES Final Result [facility] [address] [place] [address], [place] [phone] * Wet prep, genital (06/12/2024 3:18 PM EDT) Only the most recent of2 resultswithin the time period is included. Clue Cells, Wet Prep Negative Negative 06/12/2024 8:13 PM EDT [facility] Yeast, Wet Prep Negative Negative 06/12/2024 8:13 PM EDT [facility] Trichomonas, Wet Prep Indeterminate Negative 06/12/2024 8:13 PM EDT [facility] Comment:Refer to Trichomonas antigen. Swab Vaginal structure / Unknown Non-blood Collection / Unknown 06/12/2024 3:18 PM EDT 06/12/2024 3:18 PM EDT us Francine Nicholas CNM LAB MICROBIOLOGY - GENERAL ORD ERABLES Final Result [facility] [address] [place] [address], [place] [phone] * US OB Less 14 Wks Single or First Gestation (06/02/2024 1:48 PM EDT) Only the most recent of2 resultswithin the time period is included. Anatomical Region Laterality Modality Body Ultrasound 06/02/2024 1:52 PM EDT Addenda Addendum by Andry Madden MD on 06/03/2024 3:50 PM EDT There is an error in the report. ??The patient did not have a transvaginal ultrasound. -------- ADDENDUM -------- Dictated By: Andry Madden Dictated Date: 06/03/2024 15:50 ET Assigned Physician: Andry Madden Reviewed and Electronically Signed By: Andry Madden Signed Date: 06/03/2024 15:50 ET Workstation ID: [id number] Transcribed By: Self Edit Transcribed Date: 06/03/2024 15:50 ET Impressions 06/02/2024 1:54 PM EDT Single intrauterine with estimated gestational age 13weeks and 2days with embryonic cardiac activity present. -------- FINAL REPORT -------- Dictated By: Andry Madden Dictated Date: 06/02/2024 13:52 ET Assigned Physician: Andry Madden Reviewed and Electronically Signed By: Andry Madden Signed Date: 06/02/2024 13:54 ET Workstation ID: [id number] Transcribed By: Self Edit Transcribed Date: 06/02/2024 13:52 ET Narrative 06/02/2024 1:54 PM EDT ULTRASOUND UTERUS LESS THAN 14 WEEKS, SINGLE CLINICAL HISTORY: Vaginal bleeding, COMPARISON: Ultrasound OB from 05/26/2024. COMMENT: Initially, transabdominal imaging was performed. To better evaluate the intrauterine gestation, transvaginal imaging was then performed. A single intrauterine gestational sac is identified containing a yolk sac and a pole with a crown-rump length of 7.1cm, corresponding to an estimated gestational age of 13weeks and 2days. Embryonic cardiac activity is present and measures 170BPM. ??The cervix measures 2.4 cm. The left ovary measures 2.2 x 1.4 x 2.5 cm and is within normal limits. Right ovary is not visualized Procedure Note Andry Madden MD - 06/02/2024 ULTRASOUND UTERUS LESS THAN 14 WEEKS, SINGLE CLINICAL HISTORY: Vaginal bleeding, COMPARISON: Ultrasound OB from 05/26/2024. COMMENT: Initially, transabdominal imaging was performed. To better evaluate theintrauterine gestation, transvaginal imaging was then performed. A single intrauterine gestational sac is identified containing a yolk sacand a pole with a crown-rump length of 7.1cm, corresponding to anestimated gestational age of 13weeks and 2days. Embryonic cardiac activityis present and measures 170BPM. The cervix measures 2.4 cm. The left ovary measures 2.2 x 1.4 x 2.5 cm and is within normal limits. Right ovary is not visualized IMPRESSION: Single intrauterine with estimated gestational age 13weeks [id number] with embryonic cardiac activity present. -------- FINAL REPORT -------- Dictated By: Andry Madden Dictated Date: 06/02/2024 13:52 ET Assigned Physician: Andry Madden Reviewed and Electronically Signed By: Andry Madden Signed Date: 06/02/2024 13:54 ET Workstation ID: [id number] Transcribed By: Self Edit Transcribed Date: 06/02/2024 13:52 ET us Gavi Childress CNM IMG OB US PROCEDURES Edited Result - Final * US OB Less 14 Wks Nuchal Measurement (05/26/2024 2:59 PM EDT) Anatomical Region Laterality Modality Body Ultrasound Study GA Study Date Study TANVIR Working TANVIR (Source) Feta l Weight (Method) 05/26/2024 12:2 9 PM EDT Narrative 05/26/2024 4:00 PM EDT OBSTETRICS REPORT ?(Signed Final 05/26/2024 04:00 pm) PATIENT INFO: ID #: ? [id number] ? : ??[birth year] (24 yrs)(F) Name: ? SASHA KHAN- ?Visit Date: 05/26/2024 12:29 pm ? ZAMORA PERFORMED BY: Attending: ?Joyce Franco MD Performed By: ? Mikaela Mike RDMS Referred By: ?Caro Haro C.N.M Ref. Address: ? [address] ? [place] [address] Location: ? [facility] [place] [facility]ound ([facility]) SERVICE(S) PROVIDED: US < 14 weeks Abdominal Ultrasound ?80393 US Nuchal Translucency ?32670 INDICATIONS: Uterine congenital anomaly in , ? O34.01 1st trimester Bicornuate Uterus ?Q51.3 Encounter for screening for nuchal ?? Z36.82 translucency Encounter for screening for ?Z36.3 malformations 12 weeks gestation of ?Z3A.12 TECHNIQUE/SCAN QUALITY: Technique: ?? Transabdominal Scan ? Satisfactory Quality: OB HISTORY: : ?2 ? Term: ?? 0 ?Edilberto: ?? 0 ?SAB: ?? 1 TOP: ?0 ? Ectopic: ??0 ?Livin VITAL SIGNS: Weight (lb) ?? Height ?BMI 169 ? 5'3 ?29.93 EVALUATION: Number Of Fetuses: ? 1 Preg. Location: ?Intrauterine Heart Rate(bpm): ?? 170 Cardiac Activity: ?Observed Regular rhythm Presentation: ?Breech Placenta Location: ?Posterior Left Lateral Appearance: ?Grade 0 Cord Insertion: ?Visualized Amniotic Fluid SHERYL FV: ?Within Normal Limits BIOMETRY: GESTATIONAL AGE: LMP: ? 12w 0d ?Date: ??03/03/24 ?TANVIR: ?? 12/08/24 Best: ?12w 0d ?? Det. By: ??LMP ??(03/03/24) ?TANVIR: ?? 12/08/24 1ST TRIMESTER GENETIC SONOGRAM SCREENING: CRL: ?61 ??mm ? G.Age: ?? 12w 4d ? TANVIR: ?? 12/04/24 Nuc Trans: ? 1.3 ??mm Nasal Bone: ? Present STANDARD ANATOMY: Cranium: ?Normal appearance Choroid Plexus: ? Normal appearance Stomach: ?Normal appearance Abdominal Wall: ? Normal appearance Cord Vessels: ? Normal 3-Vessel Cord Bladder: ?Normal appearance Upper Extremities: ?Seen Lower Extremities: ?Seen CERVIX UTERUS ADNEXA: Cervix Within Normal Limits Abdominally Uterus Size(cm) ?13.19 ?? x ?? 9.37 ?? x ??6.45 Uterus Vol(ml): ?417.39 Anteverted, anteflexed. Within Normal Limits- Bicornuate Right Ovary Size(cm) ? 1.72 ?? x ?? 1.71 ?? x ??2.8 ? Vol(ml): 4.31 Normal in size and appearance. It is found between the uterus and the pelvic sidewall. Left Ovary Size(cm) ? 2.11 ?? x ?? 2.39 ?? x ??1.15 ?Vol(ml): 3.04 Normal in size and appearance. It is found between the uterus and the pelvic sidewall. Cul De Sac There is no free fluid in the cul de sac. Adnexa Both adnexae appear unremarkable. COMMENTS: Ms. Hal Zamora is being seen for first trimester screening for aneuploidy. - Her medical history is not contributory. She has a bicornuate uterus. Her obstetrical history is significant for one previous miscarriage after an IUD removal during the early first trimester. - She had cell free DNA screening. Results were low-risk for all conditions assessed. - Ultrasound findings: The uterus is bicornuate. The is in the right horn of the uterus. - The nuchal translucency measurement is < 95th% for the gestational age. - biometry is consistent with dates. ??Assessment of the anatomy is appropriate for the gestational age. There are no ultrasound findings to suggest aneuploidy. - Plan: 1. An anatomical survey and cervical length screening for risk of have been scheduled. - 2. The patient should be offered second trimester MSAFP only, to assess for risk of an open neural tube defect. Joyce Franco MD Electronically Signed Final Report ?? 05/26/2024 04:00 pm Procedure Joyce Munoz MD - 05/26/2024 OBSTETRICS REPORT (Signed Final 05/26/2024 04:00 pm) PATIENT INFO: ID #: [id number] : [birth year] (24 yrs)(F) Name: SASHA KHAN- Visit Date: 05/26/2024 12:29 pm JOHANNA PERFORMED BY: Attending: Joyce Franco MD Performed By: Mikaela Mike [facility] Referred By: Caro Haro C.N.M Ref. 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 Location: Intrauterine Heart Rate(bpm): 170 Cardiac Activity: Observed Regular rhythm Presentation: Breech Placenta Location: Posterior Left Lateral Appearance: Grade 0 Cord Insertion: Visualized Amniotic Fluid SHERYL FV: Within Normal Limits BIOMETRY: GESTATIONAL AGE: LMP: 12w 0d Date: 03/03/24 TANVIR: 12/08/24 Best: 12w 0d Det. By: LMP (03/03/24) TANVIR: 12/08/24 1ST TRIMESTER GENETIC SONOGRAM SCREENING: CRL: 61 mm G.Age: 12w 4d TANVIR: 12/04/24 Nuc Trans: 1.3 mm Nasal Bone: Present STANDARD ANATOMY: Cranium: Normal appearance Choroid Plexus: Normal appearance Stomach: Normal appearance Abdominal Wall: Normal appearance Cord Vessels: Normal 3-Vessel Cord Bladder: Normal appearance Upper Extremities: Seen Lower Extremities: Seen CERVIX UTERUS ADNEXA: Cervix Within Normal Limits Abdominally Uterus Size(cm) 13.19 x 9.37 x 6.45 Uterus Vol(ml): 417.39 Anteverted, anteflexed. Within Normal Limits- Bicornuate Right Ovary Size(cm) 1.72 x 1.71 x 2.8 Vol(ml): 4.31 Normal in size and appearance. It is found between the uterus and the pelvic sidewall. Left Ovary Size(cm) 2.11 x 2.39 x 1.15 Vol(ml): 3.04 Normal in size and appearance. It is found between the uterus and the pelvic sidewall. Cul De Sac There is no free fluid in the cul de sac. Adnexa Both adnexae appear unremarkable. COMMENTS: Ms. Hal Zamora is being seen for first trimester screening for aneuploidy. - Her medical history is not contributory. She has a bicornuate uterus. Her obstetrical history is significant for one previous miscarriage after an IUD removal during the early first trimester. - She had cell free DNA screening. Results were low-risk for all conditions assessed. - Ultrasound findings: The uterus is bicornuate. The is in the right horn of the uterus. - The nuchal translucency measurement is < 95th% for the gestational age. - biometry is consistent with dates. Assessment of the anatomy is appropriate for the gestational age. There are no ultrasound findings to suggest aneuploidy. - Plan: 1. An anatomical survey and cervical length screening for risk of have been scheduled. - 2. The patient should be offered second trimester MSAFP only, to assess for risk of an open neural tube defect. Joyce Franco MD Electronically Signed Final Report 05/26/2024 04:00 pm Caro Haro [facility] OB US PROCEDURES Final Result * Panorama test (05/22/2024 11:06 AM EDT) Blood Venous blood specimen / Unknown Giselle Carrero [facility] BLOOD ORDERABLES Final R esult * Horizon 14 (05/21/2024 5:27 PM EDT) Blood Venous blood specimen / Unknown Giselle Carrero [facility] BLOOD ORDERABLES Final R esult * Chlamydia trachomatis and Neisseria gonorrhoeae molecular study (05/16/2024 4:05 PM EDT) Neisseria gonorrhoeae PCR Negative Negative LAB MOLECULAR DIAGNOSTICS METHOD 05/17/2024 10:22 AM EDT [facility] Chlamydia trachomatis PCR Negative Negative LAB MOLECULAR DIAGNOSTICS METHOD 05/17/2024 10:22 AM EDT [facility] Swab Vaginal structure / Unknown Non-blood Collection / Unknown 05/16/2024 4:05 PM EDT 05/16/2024 4:05 PM EDT Giselle Carrero [facility] MICROBIOLOGY - GENERAL O RDERABLES Final Result [facility] [address] [place] [address], * Hepatitis C antibody (05/13/2024 3:07 PM EDT) Hepatitis C Antibody Negative Negative LAB CHEMISTRY METHOD 05/13/2024 7:35 PM EDT [facility] Blood Venous blood specimen / Unknown Venipuncture / Unknown 05/13/2024 3:07 PM EDT 05/13/2024 3:07 PM EDT Caro Haro [facility] BLOOD ORDERABLES Final Result Performing Organization Address City/[facility]/ZIP Co de Phone Number [facility] [address] [place] [address], [place] [phone] * HIV 1,2 antibody, p24 antigen with reflex to differentiation (05/13/2024 3:07 PM EDT) HIV Combo AB/AG Negative Negative LAB CHEMISTRY METHOD 05/13/2024 7:36 PM EDT [facility] Blood Venous blood specimen / Unknown Venipuncture / Unknown 05/13/2024 3:07 PM EDT 05/13/2024 3:07 PM EDT Narrative [facility] - 05/13/2024 7:36 PM EDT This assay is a 4th generation assay allowing for earlier detection of HIV infection by detecting the presence of the HIV-1 p24 antigen as well as the traditional antibodies to HIV type 1 (including group O) and type 2. ??Use of a 4th generation assay is the current CDC recommendation for HIV screening. [facility] BLOOD ORDERABLES Final Result Performing Organization Address [facility] Co de Phone Number [facility] [address] [place] [address], * Hepatitis B surface antigen with reflex to confirmation (05/13/2024 3:07 PM EDT) Hepatitis B Surface Ag Negative Negative LAB CHEMISTRY METHOD 05/13/2024 7:07 PM EDT [facility] Blood Venous blood specimen / Unknown Venipuncture / Unknown 05/13/2024 3:07 PM EDT 05/13/2024 3:07 PM EDT Narrative [facility] - 05/13/2024 7:07 PM EDT Over the counter supplements containing high doses of biotin may interfere with this assay. ??If interference is suspected, patients shoud be retested after refraining from biotin supplements for 72 hours. [facility] Est[facility] BLOOD ORDERABLES Final Result Performing Organization Address [facility] Co de Phone Number [facility] [address] [place] [address], * Treponema pallidum antibody with reflex to RPR and particle agglutination (05/13/2024 3:07 PM EDT) T. Pallidum Antibodies Negative Negative LAB CHEMISTRY METHOD 05/13/2024 7:07 PM EDT [facility] Blood Venous blood specimen / Unknown Venipuncture / Unknown 05/13/2024 3:07 PM EDT 05/13/2024 3:07 PM EDT [facility] BLOOD ORDERABLES Final Result [facility] [address] [place] [address], * Venipuncture charge (05/13/2024 3:07 PM EDT) Extra Tube Hold for add-ons. 05/13/2024 5:01 PM EDT [facility] Comment:Auto resulted. Blood Venous blood specimen / Unknown Venipuncture / Unknown 05/13/2024 3:07 PM EDT 05/13/2024 3:07 PM EDT [facility] Estrellita [facility] BLOOD ORDERABLES Final Result Performing Organization Address City/[facility]/ZIP Co de Phone Number [facility], * Drug abuse screen expanded with reflex confirmation, urine (05/13/2024 3:07 PM EDT) Amphetamine Screen, Ur Negative Negative LAB CHEMISTRY METHOD 05/13/2024 7:18 PM EDT [facility] Comment:Certain OTC medicati ons containing ephedrine, phenylephrine, pseudoephedrine and phenylpropanolamine can cause false positive results. Barbiturate Screen, Ur Negative Negative LAB CHEMISTRY METHOD 05/13/2024 7:18 PM EDT [facility] Benzodiazepine Screen, Ur Negative Negative LAB CHEMISTRY METHOD 05/13/2024 7:18 PM EDT [facility] Cocaine Screen, Ur Negative Negative LAB CHEMISTRY METHOD 05/13/2024 7:18 PM EDT [facility] Opiate Screen, Ur Negative Negative LAB CHEMISTRY METHOD 05/13/2024 7:18 PM EDT [facility] Cannabinoid (THC) Screen, Ur Negative Negative LAB CHEMISTRY METHOD 05/13/2024 7:18 PM EDT [facility] Comment:Specimens from patie nts taking pantoprazole sodium (Protonix) have been shown to produce false positive results. Fentanyl, Ur Negative Negative LAB CHEMISTRY METHOD 05/13/2024 7:18 PM EDT [facility] Oxycodone Screen, Ur Negative Negative LAB CHEMISTRY METHOD 05/13/2024 7:18 PM EDT [facility] Urine Urine specimen obtained by clean catch procedure / Unknown Non-blood Collection / Unknown 05/13/2024 3:07 PM EDT 05/13/2024 3:07 PM EDT Narrative [facility] - 05/13/2024 7:18 PM EDT [...] SENT FOR ALTERNATE METHOD CONFIRMATION* Caro Haro [facility] URINE ORDERABLES Final Result [facility] [address] [place] [address], * (ABNORMAL) CBC auto differential (05/13/2024 3:07 PM EDT) WBC 11.5(H) 4.8 - 10.8 K/[facility] LAB HEMETOLOGY METHOD 05/13/2024 6:47 PM EDT [facility] RBC 5.20(H) 3.80 - 4.80 M/[facility] LAB HEMETOLOGY METHOD 05/13/2024 6:[address] [facility] Hemoglobin 14.3 11.5 - 16.0 g/dL LAB HEMETOLOGY METHOD 05/13/2024 6:[address] [facility] Hematocrit 44.0 35.0 - 47.0 % LAB HEMETOLOGY METHOD 05/13/2024 6:[address] [facility] MCV 84.1 79.0 - 98.0 FL LAB HEMETOLOGY METHOD 05/13/2024 6:[address] [facility] MCH 27.3 27.0 - 32.0 pcg LAB HEMETOLOGY METHOD 05/13/2024 6:[address] [facility] MCHC 32.5 32.0 - 37.0 g/dL LAB HEMETOLOGY METHOD 05/13/2024 6:[address] [facility] RDW 13.2 11.0 - 15.0 % LAB HEMETOLOGY METHOD 05/13/2024 6:[address] [facility] Platelets 239 130 - 400 K/mcL LAB HEMETOLOGY METHOD 05/13/2024 6:[address] [facility] MPV 12.3(H) 7.0 - 11.0 FL LAB HEMETOLOGY METHOD 05/13/2024 6:[address] [facility] NRBC 0.0 <1.0 % LAB HEMETOLOGY METHOD 05/13/2024 6:[address] [facility] NRBC Absolute 0.00 <0.10 K/mcL LAB HEMETOLOGY METHOD 05/13/2024 6:[address] [facility] Neutrophils Relative 70.6 % LAB HEMETOLOGY METHOD 05/13/2024 6:[address] [facility] Lymphocytes Relative 22.9 % LAB HEMETOLOGY METHOD 05/13/2024 6:[address] [facility] Monocytes Relative 5.6 % LAB HEMETOLOGY METHOD 05/13/2024 6:47 PM EDT [facility] Eosinophils Relative 0.2 % LAB HEMETOLOGY METHOD 05/13/2024 6:47 PM EDT [facility] Basophils Relative 0.4 % LAB HEMETOLOGY METHOD 05/13/2024 6:47 PM EDT [facility] Immature Granulocytes Relative 0.3 % LAB HEMETOLOGY METHOD 05/13/2024 6:47 PM EDT [facility] Neutrophils Absolute 8.13(H) 1.50 - 7.00 K/mcL LAB HEMETOLOGY METHOD 05/13/2024 6:47 PM EDT [facility] Lymphocytes Absolute 2.64 1.00 - 5.00 K/mcL LAB HEMETOLOGY METHOD 05/13/2024 6:47 PM EDT [facility] Monocytes Absolute 0.65 0.20 - 1.00 K/mcL LAB HEMETOLOGY METHOD 05/13/2024 6:47 PM EDT [facility] Eosinophils Absolute 0.02 0.00 - 0.50 K/mcL LAB HEMETOLOGY METHOD 05/13/2024 6:47 PM EDT [facility] Basophils Absolute 0.05 0.00 - 0.20 K/mcL LAB HEMETOLOGY METHOD 05/13/2024 6:47 PM T [facility] Immature Granulocytes Absolute 0.04(H) 0.00 - 0.03 K/mcL LAB HEMETOLOGY METHOD 05/13/2024 6:47 PM T [facility] Blood Venous blood specimen / Unknown Venipuncture / Unknown 05/13/2024 3:07 PM EDT 05/13/2024 3:07 PM EDT Caro ORTIZ LAB BLOOD ORDERABLES Final Result [facility] [address] [place] [address], [place] [phone] * Rubella antibody IgG (05/13/2024 3:07 PM EDT) [facility] Rubella IgG Quant 10.2 >=10.0 I Unit/mL LAB CHEMISTRY METHOD 05/13/2024 9:15 PM EDT [facility] Rubella IgG Antibody Interp Positive Positive LAB CHEMISTRY METHOD 05/13/2024 9:15 PM EDT [facility] Blood Venous blood specimen / Unknown Venipuncture / Unknown 05/13/2024 3:07 PM EDT 05/13/2024 3:07 PM EDT us Caro Haro [facility] BLOOD ORDERABLES Final Result [facility] [address] [place] [address], [place] [phone] * Type and screen (05/13/2024 3:07 PM EDT) [facility] ABO Group O 05/14/2024 8:57 AM EDT [facility] Rh Type Positive 05/14/2024 8:57 AM EDT [facility] Antibody Screen Negative 05/14/2024 8:57 AM EDT [facility] Blood Venous blood specimen / Unknown Venipuncture / Unknown 05/13/2024 3:07 PM EDT 05/13/2024 3:07 PM EDT us Caro Haro [facility] BLOOD BANK TEST ORDERAB LES Final Result [facility] [address] [place] [address], [place] [phone] * Culture urine (05/13/2024 3:07 PM EDT) [facility] Culture, Urine No growth 05/14/2024 1:09 PM EDT [facility] Urine Urine specimen obtained by clean catch procedure / Unknown Non-blood Collection / Unknown 05/13/2024 3:07 PM EDT 05/13/2024 3:07 PM EDT [facility] LAB MICROBIOLOGY - GENERAL ORDERABLES Final Result Performing Organization Address [facility] Co de Phone Number [facility] [address] [place] [address], [place] [phone] * Varicella zoster antibody IgG (05/13/2024 3:07 PM EDT) [facility] Varicella IgG Positive Positive LAB CHEMISTRY METHOD 05/14/2024 8:59 AM EDT [facility] Varicella Zoster IgG 3.72 >=1.00 S/CO LAB CHEMISTRY METHOD 05/14/2024 8:59 AM EDT [facility] Blood Venous blood specimen / Unknown Venipuncture / Unknown 05/13/2024 3:07 PM EDT 05/13/2024 3:07 PM EDT Narrative [facility] - 05/14/2024 8:59 AM EDT Interpretation >= 1.00 S/CO is considered to be consistent with Immunity [facility] BLOOD ORDERABLES Final Result Performing Organization Address [facility] de Phone Number [facility] [address] [place] [address], [place] [phone] * Thyroid stimulating hormone (05/13/2024 3:07 PM EDT) [facility] TSH 1.26 0.40 - 4.00 mcIU/mL LAB CHEMISTRY METHOD 05/15/2024 2:25 PM EDT [facility] Blood Venous blood specimen / Unknown Venipuncture / Unknown 05/13/2024 3:07 PM EDT 05/13/2024 3:07 PM EDT Giovanna ORTIZ LAB BLOOD ORDERABLES Fi nal Result Performing Organization Address [facility]/ZIP Co de Phone Number [facility] [address] [place] [address], [place] [phone] * (ABNORMAL) POC , urine manually resulted (04/29/2024 3:46 PM EDT) Pathologist [facility] HCG, Ur POC Positive(A ) Negative POC hCG Int QC Pass? Yes Yes Urine Urine specimen obtained by clean catch procedure / Unknown 04/29/2024 3:46 PM EDT Giselle ORTIZ POINT OF CARE TEST ENTER/GEMMA T ORDERABLES Final Result * Thyroid stimulating hormone with reflex to free t4 and free t3 (03/28/2024 12:28 PM EST) Pathologist [facility] TSH 2.11 0.40 - 4.00 mcIU/mL LAB CHEMISTRY METHOD 03/28/2024 4:38 PM EST [facility] Blood Venous blood specimen / Unknown Venipuncture / Unknown 03/28/2024 12:28 PM EST 03/28/2024 12:28 PM EST Giovanna ORTIZ LAB BLOOD ORDERABLES Fi nal Result [facility] [address] [place] [address], [place] [phone] * (ABNORMAL) Testosterone free, bioavailable and total (03/28/2024 12:28 PM EST) Pathologist [facility] Testosterone 45 9 - 48 ng/dL LAB CHEMISTRY METHOD 03/28/2024 4:38 PM EST [facility] Testosterone, Free 0.7(H) 0.0 - 0.5 ng/dL LAB CHEMISTRY METHOD 03/28/2024 4:38 PM EST [facility] Testosterone, Bioavailable 16(H) 1 - 9 ng/dL LAB CHEMISTRY METHOD 03/28/2024 4:38 PM EST [facility] Sex Hormone Binding 39.9 See Comment nmol/L LAB CHEMISTRY METHOD 03/28/2024 4:38 PM EST [facility] Comment: FEMALES: ??pre-menopausal ?? 10.8 [...] LAB CHEMISTRY METHOD 03/28/2024 4:38 PM EST [facility] Blood Venous blood specimen / Unknown Venipuncture / Unknown 03/28/2024 12:28 PM EST 03/28/2024 12:28 PM EST Giovanna Goodson [facility] BLOOD ORDERABLES Fi nal Result [facility] [address] [place] [address], * Prolactin (03/28/2024 12:28 PM EST) Prolactin 23.20 See Comment ng/mL LAB CHEMISTRY METHOD 03/28/2024 4:32 PM EST [facility] Comment: Prolactin Reference Ranges (ng/mL) ??Non ?2.2 - ??30.3 ? 8.1 - 347.6 ??Postmenopausal 0.7 - ??31.5 Blood Venous blood specimen / Unknown Venipuncture / Unknown 03/28/2024 12:28 PM EST 03/28/2024 12:28 PM EST Giovanna Goodson [facility] BLOOD ORDERABLES Fi nal Result Performing Organization Address [facility] de Phone Number [facility] [address] [place] [address], [place] [phone] * Estradiol (03/28/2024 12:28 PM EST) Pathologist [facility] Estradiol 491 See below pcg/mL LAB CHEMISTRY METHOD 03/28/2024 4:32 PM EST [facility] Comment: ESTRADIOL REFERENCE RANGES (PG/ML) [...] EST 03/28/2024 12:28 PM EST Giovanna Goodson [facility] BLOOD ORDERABLES Fi nal Result Performing Organization Address [facility]/ZIP Co de Phone Number [facility] [address] [place] [address], [place] [phone] * Dehydroepiandrosterone (03/28/2024 12:28 PM EST) Pathologist [facility] DHEA (Dehydroepiandroster one), Unconjugated, LC/MS/MS 491 ng/dL 04/03/2024 10:35 AM EST [facility] Comment: Adult Female Reference Ranges ??Pre-Menopausal ?Mid Follicular: 385-1143 ng/dL ?Surge: ?345-2030 ng/dL ?Mid Luteal: ? 414-1295 ng/dL ??Post-Menopausal ?77-851 ng/dL This test was developed and its analytical performance characteristics have been determined by [employer]. It has not been cleared or approved by FDA. This assay has been validated pursuant to the CLIA regulations and is used for clinical purposes. Test Performed at: [facility] [address] [place], [place] ??[id number] ? I Nghia TOBAR, PhD, PAUL Blood Venous blood specimen / Unknown Venipuncture / Unknown 03/28/2024 12:28 PM EST 03/28/2024 12:28 PM EST Giovanna Goodson [facility] BLOOD ORDERABLES Fi nal Result [facility] [address] [place] [phone] * Hemoglobin A1c (03/28/2024 12:28 PM EST) Pathologist [facility] Hemoglobin A1C 5.3 <6.5 % LAB CHEMISTRY METHOD 03/28/2024 9:02 PM EST [facility] Mean Bld Glu Estim. 105 mg/dL LAB CHEMISTRY METHOD 03/28/2024 9:02 PM EST [facility] Blood Venous blood specimen / Unknown Venipuncture / Unknown 03/28/2024 12:28 PM EST 03/28/2024 12:28 PM EST Giovanna Goodson [facility] BLOOD ORDERABLES Fi nal Result Performing Organization Address City/[facility]/ZIP Co de Phone Number [facility] [address] [place] [address], * Luteinizing hormone (03/28/2024 12:28 PM EST) [facility] Luteinizing Hormone 2.0 See Comment mIU/mL LAB CHEMISTRY METHOD 03/28/2024 4:31 PM EST [facility] Blood Venous blood specimen / Unknown Venipuncture / Unknown 03/28/2024 12:28 PM EST 03/28/2024 12:28 PM EST Narrative [facility] - 03/28/2024 4:31 PM EST LH REFERENCE RANGES (MIU/ML) FEMALES NORMALLY MENSTRUATING: FOLLICULAR PHASE ??1.9 - 12.8 MIDCYCLE PEAK ?22.8 - 76.1 LUTEAL PHASE ?0.6 - 13.5 POSTMENOPAUSAL: ON HRT ?1.1 - ??52.4 UNTREATED ? 8.6 - ??61.8 Giovanna Goodson [facility] BLOOD ORDERABLES Fi nal Result [facility] [address] [place] [address], * Cervical Cancer Screening: HPV (09/19/2022) [facility] Cervical Cancer Screening: HPV no interpreta tion,abstr acted Historical Provider HEALTH MAINTENANCE Final Result from Last 3 Months or Most Recently Relevant to Health Maintenance Insurance [facility] Care Teams Sustainability Coordinator Relationship Specialty Start Date End Date Elmira Frausto MD 11 [facility] [place] PCP - General Internal Medicine 02/27/19
--- OUTSIDE RECORDS SUMMARY | 2024-06-18 13:00 | XMS_ITS | Encounter Summary ---
Author Organization [facility] Address [address] [place] [address] Care Team Providers Care Wallpaper Printer Helper Name Role Phone Elmira Frausto MD Primary Care Provider [phone] Encounter Details Date Type Department Care Team (Late st Contact Info) Description 06/12/2024 Nurse Triage Obstetrics and Gynecology - [address] [phone] Giselle Carrero, [address] [address] Social History Tobacco Use Types Packs/Day Years Used Date Smoking Tobacco: Never Smokeless Tobacco: Never Alcohol Use Standard Drinks/Week Comments No 0 [...] for your loved ones. For example, child development assistant or elderly care for an older adult? [...] on file Sexual Orientation Not on file documented as of this encounter Plan of Treatment Upcoming Encounters Date Type Department Care Team (Late st Contact Info) Description 07/02/2024 1:00 PM EDT Routine Obstetrics and Gynecology - [address] [address] Giselle Carrero CNM [address] [place] [address] 07/30/2024 4:00 PM EDT Routine Obstetrics and Gynecology - [address] [address] Caro Haro, [address] [address] 08/01/2024 2:00 PM EDT Ancillary Procedure Maternal Medicine - [address] [address] 08/27/2024 11:00 AM EDT Routine Obstetrics and Gynecology - [address] [address] Magan Giselle, [address] [address] documented as of this encounter Visit Diagnoses Not on filedocumented in this encounter Additional Health Concerns Assessment Noted Time PHQ-9 Depression Total Score: 0 06/13/19 25 1:48 PM EDT documented as of this encounter Care Teams Wallpaper Printer Helper Relationship Specialty Start Date End Date Elmira Frausto MD [address] [place] [address] PCP - General Internal Medicine 02/27/19 documented as of this encounter
--- OUTSIDE RECORDS SUMMARY | 2024-06-18 13:00 | XMS_ITS | Clinical Summary ---
Author Organization [facility] Address [address] [place] [address] Care Team Providers Care Finish Remover Name Role Phone Geeta Macias PA-C Primary Care Provider [phone] Source Comments PLEASE NOTE, if this patient is a minor, it may be UNLAWFUL to discuss sensitive information that is contained in these records (such as FAMILY PLANNING, MENTAL HEALTH or SUBSTANCE ABUSE) with the minor patient's parent or other person without the patient's specific authorization.[facility] Allergies No known active allergies Family History Medical History Relation Name Comments [...] 03/07/2024 10:12 AM EST Plan of Treatment Health Maintenance Due Date Last Done Comments HPV Screening 1999 Hepatitis C Screening 1999 Pap + HPV 1999 Imm-Varicella (1 of 2 - 13+ 2-dose series) 05/24/2012 Imm-HPV (1 - 3-dose series) 05/24/2014 Imm-DTaP/Tdap/Td (1 - Tdap) 05/24/2018 Imm-Hepatitis B (1 of 3 - 19+ 3-dose series) 9 Cervical Cancer Screening 05/24/2020 Pap Smear 05/24/2020 [id number] ( season) 2023 Imm-Influenza (#1) 2023 Anxiety Screening 03/07/2025 03/07/2024 Hypertension Screening (#1) 03/07/2025 Relationship Safety Screening/Counseling 03/07/2025 03/07/2024 Tobacco Screening 03/07/2025 03/07/2024 Lipid Screening 03/07/2027 03/07/2024 Alcohol and Drug Screen Completed 03/07/2024 Depression Annual Screen Completed 03/07/2024 HIV Screening Completed 03/07/2024 Cervical Ablation/Cold-Knife Conization Discontinued Cervical Cryotherapy Discontinued Colposcopy Discontinued Endometrial Biopsy Discontinued Excision/Leep Discontinued HPV Genotyping Discontinued Vaginal Pap Discontinued Vulvoscopy Discontinued Procedures Procedure Name Priority Date/Time Associated Diagnosis Comments HIV 1/2 AG & AB W/RFLX (4TH GEN) Routine 03/07/2024 10:58 AM EST Routine screening for STI (sexually transmitted infection) LIPID PANEL Routine 03/07/2024 10:58 AM EST BMI 30.0-30.9,adult from Last 3 Months or Most Recently Relevant to Health Maintenance Results * HIV 1/2 AG & AB W/RFLX (4TH GEN) (03/07/2024 10:58 AM EST) HIV AG/AB, 4TH GEN NON-REAC TIVE NON-REAC TIVE [facility] Comment: HIV-1 antigen and HIV-1/HIV-2 antibodies were [...] ?? For additional information please refer to http://education.[employer]/faq/IJJ203 (This link is being provided for informational/ educational purposes only.) The performance of this assay has not been clinically validated in patients less than 2 years old. Blood Blood / Unknown 03/07/2024 1 0:58 AM EST 03/07/2024 11:00 AM EST Narrative [facility] - 03/09/2024 4:06 PM EST FASTING:YES PATIENT UNABLE TO VOID; ADVISED TO RETURN FOR COLLECTION. us Geeta Macias PA-C LAB - BLOOD DRAW Final Resul t [facility] [address] [place] [id number], [employer] [address] [address] * (ABNORMAL) LIPID PANEL (03/07/2024 10:58 AM EST) CHOLESTEROL, TOTAL 192 <200 mg/dL [facility] HDL CHOLESTEROL 37(L) > OR = 50 mg/dL [facility] TRIGLYCERIDES 236(H) <150 mg/dL [facility] Comment: If a non-fasting specimen was collected, consider repeat triglyceride testing on a fasting specimen if clinically indicated. Emily et al. J. of Clin. Lipidol. 2015;9:129-169. LDL-CHOLESTEROL 119(H) 99 mg/dL (calc) [facility] Comment: Reference range: <100 Desirable range <100 mg/dL for primary prevention; ?? <70 mg/dL for patients with CHD or diabetic patients with > or = 2 CHD risk factors. LDL-C is now calculated using the Chuck calculation, which is a validated novel method providing better accuracy than the Friedewald equation in the estimation of LDL-C. Nino SS et al. JAMI. 2013;310(19): 0480-9254 (http://education.[employer]/faq/ZGF215) CHOL/HDLC RATIO 5.2(H) <5.0 (calc) [facility] NON-HDL CHOLESTEROL 155(H) <130 mg/dL (calc) [facility] Comment: For patients with diabetes plus 1 major ASCVD risk factor, treating to a non-HDL-C goal of <100 mg/dL (LDL-C of <70 mg/dL) is considered a therapeutic option. Blood Blood / Unknown 03/07/2024 1 0:58 AM EST 03/07/2024 11:00 AM EST Narrative [facility] - 03/09/2024 4:06 PM EST FASTING:YES PATIENT UNABLE TO VOID; ADVISED TO RETURN FOR COLLECTION. us Geeta Macias PA-C LAB - BLOOD DRAW Final Resul t [facility] [address] [place] [id number], [facility] [address] [place] [phone] from Last 3 Months or Most Recently Relevant to Health Maintenance Insurance [email or web address] Member Subscriber Plan / Payer (Ef fective 2023-Present) Name:Alec Hunt Relation to Subscriber:Self Name:Alec Hunt Payer ID:[id number] Group ID:Not on file Type:Indemnity Address: [facility] [address] [place] [address] Care Teams Finish Remover Relationship Specialty Start Date End Date Geeta Macias PA-C [address] [place] [address] PCP - General FAMILY MEDICINECARLO 12/21/23
== END 2024-06-18 13:09 | disposition home or self-care (01) ==
LOC: HO.ENCR 12:40
PROVIDERS: PCP Internal Medicine; Visit Provider Dietitian, Registered
DX: E28.1 Androgen excess (principal)

== ENCOUNTER → 2024-06-18 12:39 | Outpatient (BNVA) | payer OTHER, SELFPAY | PROVIDERS: PCP Internal Medicine; Visit Provider Dietitian, Registered | DX: E28.1 Androgen excess (principal) | CPT/HCPCS: 97803 ==

== ENCOUNTER 2024-07-31 09:41 | Outpatient (AMB) | payer OTHER, SELFPAY ==
[2024-07-31 09:45] VITALS: BMI 31.2
--- NOTE | 2024-07-31 09:45 | A.OFFVIS_ITS ---
VS Expanded 07/31/24 09:45 Height 5 ft 3 in Weight 176 lb 2.389 oz BMI 31.2 Intake Visit Reasons: monitor wt Allergies No Known Allergies Allergy (Verified 05/06/24 13:09) Nutrition Presentation Details: Pt presents for MNT f/u for hyperandrogenemia Pt reports was in [place] for 3 wks, diet different during vacation and is working on getting back into meal routine Due date dec 08, 2024, 21 wks, 3 days wks gestation PFSH Medical History (Updated 05/06/24 @ 13:13 by Jair Sin MD) Hyperandrogenemia Surgical History (Updated 05/06/24 @ 13:09 by SARAH Vernon) No pertinent past surgical history Family History Mother No known health problems Father No problems noted. 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 Category: Medical Plan Expected due date Dec, Pre gravid wt : 167 lbs Recommended wt gain during : 15-25 lbs 170 lbs at 15 wks gestation ( 3 lbs wt gain in 15 wks gestation) 176 lbs at 21 weeks and 3 days, (9 lbs wt gain in 21 wks gestation) Wt: 83 Kg (pregravid wt ) Est kcal needs as per MSJ: 1800 + 300 2nd/3rd trimester (40% carb, 30% protein/fat) Est fluid needs as per 25-30 ml/d: 2500 Est prot per day as per 1-1.2 g/kg bw: 80-96g/d Recommend fiber intake : 8-10 g per day and gradually increase to 25-28 g per day for women and 35-38 g for men or as tolerated Recommend sodium intake per day : less than 2300 mg Educated patient on: ( R = reviewed V = verbalizes understanding N/R = needs review N/A = not applicable * Food sources of carbohydrate, adequate serving sizes and its role in various health conditions: R * Differences between complex carbohydrates a simple carbohydrates, role of fiber in diet: R * Lean protein sources of foods: R * Differences between types of fats and role in diet (mono on saturated fat fatty acids, saturated fatty acids, trans fats): R * Food sources of sodium in salt and healthy modifications for heart health in kidney health: R * Vitamins and minerals: R V N/R * Healthy plate method concept: R V N/R * Physical activity: Benefits a precaution: R V N/R * Reviewed nutrition during /food safety * Patient Instructions: Work on choosing complex carbohydrates (those with fiber, fruit in place of fruit juices as example choose lower fat food options : baked potato in place of fried or baked plantain instead of fried , lean beef/poultry/broccoli or spinach as example try yogurt , low fat cottage cheese, 1%cup of milk at least: 3 cups of calcium rich foods a day I Coding Level of Care Code Nutr Indiv Subseq (62748) Diagnoses Hyperandrogenemia E28.1 Time Spent (min) 20
== END 2024-07-31 10:06 | disposition home or self-care (01) ==
LOC: HO.ENCR 09:42
PROVIDERS: PCP Internal Medicine; Visit Provider Dietitian, Registered
DX: E28.1 Androgen excess (principal)

== ENCOUNTER → 2024-07-31 09:41 | Outpatient (BNVA) | payer OTHER, SELFPAY | PROVIDERS: PCP Internal Medicine; Visit Provider Dietitian, Registered | DX: E28.1 Androgen excess (principal) | CPT/HCPCS: 97803 ==